=== PATIENT | female | born 1965 | race Caucasian/White ===

== ENCOUNTER → 2017-12-19 08:02 | Outpatient (CLI) | payer BC, SELFPAY ==
--- NOTE | 2017-12-19 08:08 | CT_ITS ---
STUDY: CT RIGHT FOOT REASON FOR EXAM: Female, 52 years old. History of right foot fracture. Prior surgery with cadaver bone grafting. RADIATION DOSAGE (If Supplied By Facility): CTDIvol = ( 15.35 ) mGy, DLP = ( 320.44 ) mGycm TECHNIQUE: Thin section transaxial imaging of the foot was obtained, with sagittal and coronal reconstructed images. 3-D reconstructions were obtained as well. Individualized dose optimization techniques were used for this CT. COMPARISON: None. FINDINGS: There is evidence of a pes planus. Calcaneal spur. There is evidence of arthrodesis at the calcaneal talar joint. Screw fixation is seen along the medial aspect of the talotibial navicular bone. There is evidence of joint space narrowing with sclerosis and joint space narrowing. There is also evidence of screw and plate fixation of the calcaneal cuboid bone utilizing screw and plate fixation device. Findings suggestive of old avulsion type fracture of the distal tibia posteriorly. Normal metatarsi. Hallux valgus deformity with degenerative changes. Normal tibial and fibular sesamoid bones. Normal interphalangeal joint of the great toe. Normal phalanges of the great toe. Normal second through fifth metatarsophalangeal joints. Normal interphalangeal joints and phalanges of the lesser toes. Soft tissue swelling worse along the anterior and the lateral portion of the ankle. CT/Extremity Lower without Contra IMPRESSION: Prior fusion of the calcaneal talar as well as calcaneocuboid and cuneiform arthrodesis with joint space narrowing and degenerative changes. Electronically Signed: Abiel Hebert MD at 15:04 EST Tel [phone], Service support ,
--- NOTE | 2017-12-19 08:37 | CT_ITS ---
STUDY: CT RIGHT FOOT REASON FOR EXAM: Female, 52 years old. History of right foot fracture. Prior surgery with cadaver bone grafting. RADIATION DOSAGE (If Supplied By Facility): CTDIvol = ( 15.35 ) mGy, DLP = ( 320.44 ) mGycm TECHNIQUE: Thin section transaxial imaging of the foot was obtained, with sagittal and coronal reconstructed images. 3-D reconstructions were obtained as well. Individualized dose optimization techniques were used for this CT. COMPARISON: None. FINDINGS: There is evidence of a pes planus. Calcaneal spur. There is evidence of arthrodesis at the calcaneal talar joint. Screw fixation is seen along the medial aspect of the talotibial navicular bone. There is evidence of joint space narrowing with sclerosis and joint space narrowing. There is also evidence of screw and plate fixation of the calcaneal cuboid bone utilizing screw and plate fixation device. Findings suggestive of old avulsion type fracture of the distal tibia posteriorly. Normal metatarsi. Hallux valgus deformity with degenerative changes. Normal tibial and fibular sesamoid bones. Normal interphalangeal joint of the great toe. Normal phalanges of the great toe. Normal second through fifth metatarsophalangeal joints. Normal interphalangeal joints and phalanges of the lesser toes. Soft tissue swelling worse along the anterior and the lateral portion of the ankle. CT/Coronals Sag Multi Obl 3-D Rec IMPRESSION: Prior fusion of the calcaneal talar as well as calcaneocuboid and cuneiform arthrodesis with joint space narrowing and degenerative changes. Electronically Signed: Abiel Hebert MD at 15:04 EST Tel [phone], Service support ,
== END ==
PROVIDERS: Family Provider Family Medicine; PCP Family Medicine
DX: S92.211K Displaced fracture of cuboid bone of right foot, subsequent encounter for fracture with nonunion (principal); X58.XXXD Exposure to other specified factors, subsequent encounter
CPT/HCPCS: 73700; 76377

== ENCOUNTER → 2018-06-29 12:22 | Outpatient (CLI) | payer BC, SELFPAY | PROVIDERS: Family Provider Family Medicine; PCP Family Medicine | DX: Z48.89 Encounter for other specified surgical aftercare (principal); M19.071 Primary osteoarthritis, right ankle and foot | CPT/HCPCS: 73700; 76377 ==

== ENCOUNTER 2025-02-25 10:00 | Inpatient (IN) | payer OTHER, SELFPAY ==
[2025-02-25 10:02] VITALS: BP 136/87; PULSE 93; RESP 16; TEMP 36.6; O2SAT 99; BMI 48.5
--- NOTE | 2025-02-25 10:29 | CT_ITS ---
PROCEDURE: ABDOMEN/PELVIS WITH CONTRAST 02/25/2025 REASON FOR EXAM: PAINLESSS JAUNDICE, back pain for several days, rib pain TECHNIQUE: Abdomen and pelvis CT with intravenous contrast. Coronal and Sagittal reconstruction series were provided. PATIENT PREPARATION: Per protocol ORAL CONTRAST TYPE: None. CONTRAST: 98 cc [id number] One or more dose reduction techniques were used (e.g., Automated exposure control, adjustment of the mA and/or kV according to patient size, use of iterative reconstruction technique. RADIATION DOSE SUMMARY: DLP: 1477.43 mGycm COMPARISON: None FINDINGS: Lung bases: There is a 0.9 cm irregular density in the right lung base, axial image 14/149. Atelectasis or scar is noted at the right lung base. Liver: There is a 3 cm heterogeneous low-density peripherally enhancing lesion in the mid right hepatic lobe, axial image 28/149. There is a 1.2 cm low-density lesion in the inferior right hepatic lobe, image 45. Gallbladder: There are no visible stones. Spleen: Unremarkable Pancreas: There is a heterogeneous mass at the pancreatic head measuring 7.7 by 6.4 cm, image 47, with stranding and nodularity in the adjacent fat. Adrenals: There is a 4.7 by 3.7 cm heterogeneous right adrenal mass, image 44, Hounsfield units = 51 Kidneys: Unremarkable Bladder: Decompressed Reproductive Organs: Absent Bowel: Oral contrast progressed to the cecum. The appendix is unremarkable. Small bowel loops are not distended. Lymph nodes: There is a 1.2 x 1.5 cm enlarged mesenteric node, axial image 59/149. There is a 1.1 by 1.3 cm left periaortic node below the level of the left renal artery, image 60. 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 atherosclerotic calcifications are noted. Peritoneum / Retroperitoneum: There is no free air or free fluid. Bones: No acute bony abnormality is identified CT/Abdomen/Pelvis WITH Contrast IMPRESSION: There is a 0.9 cm irregular density in the right lung base, axial image 14/149. Atelectasis or scar is noted at the right lung base. There is a 3 cm heterogeneous low-density peripherally enhancing lesion in the mid right hepatic lobe, axial image 28/149. There is a 1.2 cm low-density lesion in the inferior right hepatic lobe, image 45. There is a heterogeneous mass at the pancreatic head measuring 7.7 by 6.4 cm, i mage 47, with stranding and nodularity in the adjacent fat. There is a 4.7 by 3.7 cm heterogeneous right adrenal mass, image 44, Hounsfield units = 51 There is a 1.2 x 1.5 cm enlarged mesenteric node, axial image 59/149. There is a 1.1 by 1.3 cm left periaortic node below the level of the left renal artery, image 60. There is an intraluminal filling defect, likely nonocclusive thrombus in the po rtal vein and proximal mesenteric veins, coronal image 53-69, with 75% narrowing of the lumen at the pancreatic head, coronal im age 65-69. Critical results were discussed with Marybeth by Radha at the time of dictat ion. Reading Location: [facility]
--- NOTE | 2025-02-25 10:44 | EDS_ITS ---
HPI History of Present Illness Chief Complaint: General Illness Informant: patient and family Narrative Narrative: 60-year-old female presenting to the emergency room with jaundice. Patient states that for the past 2 to 3 weeks she has had a 50 pound weight loss as well as pain over the bilateral lower anterior rib cage. She notes she has not had much of an appetite and no nausea and states that her stool has become light- colored. She notes her urine has become dark-colored. On Tuesday she made appointment for later this week with primary care. Tuesday night she noticed in the mirror that she was jaundiced and did not wish to pursue any investigation of this until today. She notes history of partial hysterectomy. She denies any significant pain when she eats but does note the associated nausea. No reported fevers. Patient notes that her daughter of metastatic breast cancer. Her aunt is her POA if needed. PFSH [facility] Medical History (Updated 02/25/25 @ 15:00 by Radha Goodman) Depression GERD (gastroesophageal reflux disease) Smoker DVT (deep venous thrombosis) Cervical endometriosis Tonsillectomy planned Ureter injury Home Medications ?Medication ?Instructions ?Recorded ?Last Taken ?Type calcium carbonate (Calcium 500) 500 mg PO DAILY PRN dy spepsia 02/25/25 02/24/25 History omeprazole 20 mg capsule,delayed 20 mg PO DAILY PRN ac id reflux 02/25/25 02/21/25 History release Allergy/AdvReac Type Severity Reaction Status Date / Time bupropion (From Wellbutrin) Allergy hives and Verified 02/25/25 14:54 trouble breathing Family History (Updated 02/25/25 @ 15:[address] Dontae Coello MD) Other Breast cancer Surgical History (Updated 02/25/25 @ 11:14 by Nancy Cardenas) Hx of foot surgery History of partial hysterectomy Social History Smoking Status: Current every day smoker tobacco type: cigarettes ROS ROS ED Constitutional Constitutional ED: Denies chills, fever(s) or weight loss Eyes Eyes: Denies change in vision or diplopia ENT ENT ED: Denies ear pain, rhinorrhea or sore throat Cardiovascular Cardiovascular: Denies chest pain, orthopnea, palpitations or racing heartbeat Respiratory/Chest Respiratory/Chest: Denies cough, dyspnea or orthopnea Gastrointestinal Gastrointestinal: Reports abdominal pain, diarrhea and nausea; Denies vomiting Genitourinary Genitourinary ED: Denies dysuria, hematuria or urinary frequency Musculoskeletal Musculoskeletal: Denies arthralgias or myalgias Integumentary Reports other Details: Jaundice ; Denies abscess or rash Neurologic Neurologic: Denies headache(s) or weakness Psychiatric Psychiatric: Denies anxiety, depression, suicidal ideation or suicidal thoughts Endocrine Endocrinology: Denies polydipsia, polyphagia or polyuria Allergic/Immunologic Allergic/Immunologic ED: Denies mouth swelling, tongue swelling or urticaria EXAM Physical Exam Const Vital Signs: 02/25/25 10:02 02/25/25 11:14 02/25/25 12:15 Temperature 97.9 F Temperature Source Oral Pulse Rate 93 86 Respiratory Rate 16 18 Respiratory Effort Normal Non-Labored Respiratory Pattern Normal Blood Pressure 136/87 H 131/53 H Blood Pressure Mean 103 79 Pulse Ox 99 97 Oxygen Delivery Method Room Air Room Air Positive well nourished, well developed and obese General Appearance ED: well developed Nutritional Appearance: obese HEENT Reports normocephalic, head/scalp atraumatic and moist mucous membranes Eyes PERRL and EOMs intact bilaterally General Eye ED: Yes scleral icterus Neck no lymphadenopathy, supple and no JVD Resp normal respiratory effort and clear to auscultation bilaterally Cardio regular rate, regular rhythm and no murmurs GI GI Narrative: Mild tenderness to the palpation in the epigastrium on the lower anterior right rib cage. Palpation: soft Back/Spine no CVA tenderness and normal ROM Extremity normal to inspection General Extremety ED: Negative for edema General Extremity: Negative for edema Neuro oriented x3 and CN's II-XII intact bilaterally Sensorium / Orientation: alert Motor Exam: strength 5/5 throughout Psych mental status grossly normal Mood & Affect: Negative for depressed or tearful Skin no rashes or lesions noted and no wounds General Skin Exam: jaundice MDM MDM MDM Narrative Medical decision making narrative: Differential diagnosis includes but not limited to malignancy choledocholithiasis biliary colic liver dysfunction anemia Patient's white count 7.7 hemoglobin of 17 platelet count of 268. Normal BMP except for glucose of 133. Total bilirubin is 12.8 direct bilirubin 9.0 AST of 228 ALT of 384 alk phos 841. Urinalysis does not demonstrate any obvious infection. CT of the abdomen pelvis with oral and IV contrast was obtained read by radiology and reviewed by myself. This is very concerning for primary pancreatic cancer with metastasis. Please see radiologist read for full details. I spoke with the patient and I spoke with Dr. Solano and her hospitalist team. Plan of care will be admission to the hospital. Patient has received pain and nausea medication. Patient also received a dose of Protonix as she was feeling GERD-like sensation in her epigastrium lower chest. She had not yet had her omeprazole. History & Record Review Discussion w/independent historian: Patient and Family Additional record(s) reviewed:: No prior records Lab Data Attestation: I reviewed the patient's lab results. Labs: Laboratory Results - last 24 hr 02/25/25 02/25/25 10:42 10:43 WBC 7.7 RBC 5.67 H Hgb 17.0 H Hct 50.0 H MCV 88.2 MCH 30.0 MCHC 34.0 RDW Std Deviation 49.9 H RDW Coeff of Nona 15.7 H Plt Count 268 MPV 10.6 Immature Gran % (Auto) 0.800 Neut % (Auto) 71.0 H Lymph % (Auto) 16.3 L [place] % (Auto) 10.1 H Eos % (Auto) 0.9 Baso % (Auto) 0.9 Absolute Neuts (auto) 5.4 Absolute Lymphs (auto) 1.25 Nucleated RBC % 0 Sodium 138 Potassium 4.2 Chloride 98 Carbon Dioxide 26.1 Anion Gap 13 BUN 12 Creatinine 0.93 Estim Creat Clear Calc 97.02 Est GFR (MDRD) Non-Af 71 BUN/Creatinine Ratio 13.0 Glucose 133 H Calcium 9.8 Total Bilirubin 12.80 H Direct Bilirubin 9.04 H AST 228 H ALT 384 H Alkaline Phosphatase 841 H Total Protein 6.7 Albumin 3.7 Globulin 3.0 Lipase 24 Urine Color Yellow Urine Clarity Sl. Cloudy Urine pH 6.5 Ur Specific [place] 1.010 Urine Protein 15 H Urine Glucose (UA) Normal Urine Ketones Negative Urine Occult Blood 10 H Urine Nitrite Negative Urine Bilirubin 3 H Urine Urobilinogen 4 H Ur Leukocyte Esterase 25 H Urine RBC 0-5 SEEN Urine WBC 0-5 SEEN Ur Squamous Epith Cells 0-5 SEEN Urine Bacteria RARE Urine Mucus 0 SEEN Radiography Diagnostic Testing: Clinical Impression(s) from Imaging Studies Abdomen/Pelvis CT 02/25/25 10:29 IMPRESSION: There is a 0.9 cm irregular density in the right lung base, axial image 14/149. Atelectasis or scar is noted at the right lung base. There is a 3 cm heterogeneous low-density peripherally enhancing lesion in the mid right hepatic lobe, axial image 28/149. There is a 1.2 cm low-density lesion in the inferior right hepatic lobe, image 45. There is a heterogeneous mass at the pancreatic head measuring 7.7 by 6.4 cm, image 47, with stranding and nodularity in the adjacent fat. There is a 4.7 by 3.7 cm heterogeneous right adrenal mass, image 44, Hounsfield units = 51 There is a 1.2 x 1.5 cm enlarged mesenteric node, axial image 59/149. There is a 1.1 by 1.3 cm left periaortic node below the level of the left renal artery, image 60. 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 Critical results were discussed with Marybeth by Radha at the time of dictation. Reading [facility] Management Discussion w/another healthcare provider: Hospitalist (Dr Coello), Automotive Manager (Dr Solano) and Radiologist Discharge Plan Dx/Rx/DC Orders Clinical Impression: Primary pancreatic cancer , Cancer, metastatic to liver, Abnormal weight loss, Painless jaundice Disposition Disposition: Acute Care Hospital [facility]
[2025-02-25 10:53] LABS: Absolute Lymphocyte Count 1.25 X10^3/uL (0.83-4.51); Absolute Neutrophil Count 5.4 X10^3/uL (2.0-7.7); Basophil# 0.07 X10^3/uL; Basophil% 0.9 % (0-1); Eosinophil# 0.07 X10^3/uL; Eosinophils% 0.9 % (0-5); Lymphocyte # 1.25 X10^3/ul (0.83-4.51); Lymphocyte % 16.3 % (19-41); Mean Corpuscular Volume 88.2 fL (81-99); Mean Platelet Vol. 10.6 fl (6.2-12.0); Monocyte# 0.77 X10^3/uL; Monocyte% 10.1 % (0-10); NRBC Flagged by Analyzer 0 % (0-5); Neutrophil # 5.44 X10^3/uL (2.7-7.7); Platelet Count 268 K/mm3 (150-450); RBC Distribution Width CV 15.7 % (11.6-14.6); RBC Distribution Width SD 49.9 fl (35.1-43.9); Red Blood Count 5.67 M/mm3 (4.2-5.4); White Blood Count 7.7 K/mm3 (4.4-11.0)
[2025-02-25] MEDS: 0.9% Normal Saline (1000mL) 1,000 ML 999 ML IV (11:03)
--- NOTE | 2025-02-25 11:17 | ED.RN ---
[place] urine for 3- 3.5 weeks. Heart burn feeling with rib pain.
[2025-02-25 11:21] LABS: AST(SGOT) 228 U/L (<=31); Alanine Aminotransfer ALT/SGPT 384 U/L (<=34); Albumin, Serum 3.7 g/dL (3.5-5.0); Alkaline Phosphatase 841 U/L (35-104); Anion Gap 13 (5-15); BUN 12 mg/dL (4-19); Bilirubin, Direct 9.04 mg/dL (0.00-0.30); Calcium,Total 9.8 mg/dL (7.6-11.0); Carbon Dioxide 26.1 mmol/L (21.0-32.0); Chloride 98 mmol/L (98-108); Creatinine, Serum 0.93 mg/dL (0.70-1.20); EST Glomerular Filtration Rate 71 (>60); Estimated Creatinine Clearance 97.02 ml/min (50-250); Glucose 133 mg/dL (70-99); Lipase 24 U/L (13-75); Potassium 4.2 mmol/L (3.3-5.1); Protein, Total 6.7 g/dL (5.9-8.4); Sodium Level 138 mmol/L (133-145)
[2025-02-25 11:54] LABS: Mucous, Urine 0 SEEN /hpf (<or=2+)
[2025-02-25 11:56] LABS: Color, Urine Yellow (Yellow); Glucose, Dipstick Normal (Normal); Ketone-Dipstick Negative (Negative); Leukocyte Esterase-Dipstick 25 /ul (Negative); Nitrite-Dipstick Negative (Negative); Occult Blood-Urine 10 /ul (Negative); Protein-Dipstick 15 mg/dl (Negative); Urine Clarity Sl. Cloudy (Clear); Urine Urobilinogen 4 mg/dl (Normal); Urine pH 6.5 (5.0 - 8.0)
[2025-02-25 11:59] LABS: Urine Bilirubin Dipstick 3 mg/dL (Negative)
[2025-02-25 12:06] LABS: Bacteria RARE /hpf (None Seen); Red Blood Cells-Urine 0-5 SEEN /hpf (0-5); Squamous Epithelial Cells - UA 0-5 SEEN /hpf (5-10); White Blood Cells 0-5 SEEN /hpf (0-5)
[2025-02-25 12:15] VITALS: BP 131/53; PULSE 86; RESP 18; O2SAT 97
[2025-02-25] MEDS: Ondansetron 4 MG/2 ML Vial IV (14:14)
--- NOTE | 2025-02-25 15:00 | CM.ED ---
Social work Reason for referral: support Referral source: Gita RANKIN This SW was approached by Gita RANKIN with request to meet with patient for support due to patient just discovering patient has pancreatic cancer. SW entered patient's room, introducing self and role at [facility]. Patient accepted SW visit and thanked SW for taking the time to meet with patient. Patient stated not knowing how to feel about the new diagnosis and not knowing if patient's response is right or wrong. SW provided reminder to patient that there is not a right or wrong way to respond to such news and SW provided active listening as patient described recent losses in patient's life (mom, fiance, and daughter). Patient talked about patient's life and having a feeling patient would get a cancer diagnosis at some point, but patient did not think it would be pancreatic nor this early in life. Patient discussed much about patient's daughter's myrick with breast cancer ending 12/31/2022 and the impact this has had on patient. Patient's son-in-law and 3 grandsons moved out of the area after patient's daughter and this has been difficult for patient. Patient discussed difficulty with self-care, especially since patient was patient's daughters' primary caregiver for the last month of life, as well as difficulty with accepting help offered from relatives. Patient's aunt arrived at [facility] ED and patient thanked SW for time spent talking with patient. Active listening and supportive presence provided for patient. Ksenia Ledesma, APPRAISER, CLIENT SERVICES ASSISTANT
--- NOTE | 2025-02-25 15:14 | HP.PCM.HOS_ITS ---
HPI - General General Date of Admission: 02/25/25 HPI Narrative SELENA HURTADO, is a 60 F who presents to the hospital with jaundice as well as some mild pain in her epigastric region. She has noticed a lightening of her stool coloring as well as a darkening of her urine. She also states that she has noticed some weight loss due to decreased tolerance of p.o. intake. In the ER she had a CT scan that demonstrated pancreatic head mass likely compressing her common bile duct. She also had a lesion in her right adrenal mass as well as enlarged mesenteric lymph nodes. She was also found to have a liver lesion all of which is considered at this time to be metastatic. There is also potential nonocclusive thrombus in the portal vein. She is very hesitant to undergo any type of biopsy or treatment as her daughter from an aggressive breast cancer and she states that she watched her daughter disappear while undergoing treatment, she is willing to undergo an ERCP for stent placement and even a possible biopsy but is unlikely to proceed with any type of chemotherapy or radiation therapy. [facility] Medical History (Updated 02/25/25 @ 15:00 by Radha Goodman) Depression GERD (gastroesophageal reflux disease) Smoker DVT (deep venous thrombosis) Cervical endometriosis Tonsillectomy planned Ureter injury Home Medications ?Medication ?Instructions ?Recorded ?Last Taken ?Type calcium carbonate (Calcium 500) 500 mg PO DAILY PRN dy spepsia 02/25/25 02/24/25 History omeprazole 20 mg capsule,delayed 20 mg PO DAILY PRN ac id reflux 02/25/25 02/21/25 History release Allergy/AdvReac Type Severity Reaction Status Date / Time bupropion (From Wellbutrin) Allergy hives and Verified 02/25/25 14:54 trouble breathing Family History (Updated 02/25/25 @ 15:[address] Dontae Coello MD) Other Breast cancer Surgical History (Updated 02/25/25 @ 11:14 by Nancy Cardenas) Hx of foot surgery History of partial hysterectomy Social History Smoking Status: Current every day smoker tobacco type: cigarettes ROS Constitutional Constitutional: Reports anorexia and change in weight; Denies chills, fatigue, fever(s) or malaise Eyes Eyes: Denies blurry vision ENT HEENT: Denies headache(s) or nasal discharge Cardiovascular Cardiovascular: Denies chest pain, dyspnea on exertion or syncope Respiratory/Chest Respiratory/Chest: Denies cough, shortness of breath at rest or shortness of breath with exertion Gastrointestinal Gastrointestinal: Reports abdominal pain; Denies constipation, diarrhea, nausea or vomiting Genitourinary Genitourinary: Denies dysuria Integumentary Integumentary: Reports jaundice Neurologic Neurologic: Denies focal weakness, numbness or tremor(s) Psychiatric Psychiatric: Denies anxiety or depression Vital Signs Vital Signs Vital Signs: 02/25/25 10:02 02/25/25 11:14 02/25/25 12:15 Temperature 97.9 F Temperature Source Oral Pulse Rate 93 86 Respiratory Rate 16 18 Respiratory Effort Normal Non-Labored Respiratory Pattern Normal Blood Pressure 136/87 H 131/53 H Blood Pressure Mean 103 79 Pulse Ox 99 97 Oxygen Delivery Method Room Air Room Air Weight Weight: 310 lb Body Mass Index (BMI) 48.5 Physical Exam Narrative General: Alert, Oriented x3, Cooperative, No apparent distress HEENT: Atraumatic, PERRLA, EOMI, Normocephalic, scleral icterus Oral: Moist Mucosa Neck: Supple, No JVD Lungs: Diminished, Normal air movement, No rhonchi, No wheeze, No rales Cardiovascular: Regular rate, Regular Rhythm, Normal S1, Normal S2, No murmurs Abdomen: Soft, mild epigastric tender, Non-Distended, No Hepato-splenomegaly Extremities: No edema, Capillary Refill Less than 3 Seconds Skin: Jaundice Musculoskeletal: No Tenderness to Palpation of Joints or Extremities Neurological: No focal neurological deficits, Motor Exam 5/5 strength throughout, Sensory exam intact to light touch and pain Psych/Mental Status: Normal Affect, Appropriate Results Lab / Micro Data 02/25/25 10:42 02/25/25 10:42 Labs: Laboratory Results - last 24 hr 02/25/25 10:42: WBC 7.7, RBC 5.67 H, Hgb 17.0 H, Hct 50.0 H, MCV 88.2, MCH 30.0, MCHC 34.0, RDW Std Deviation 49.9 H, RDW Coeff of Nona 15.7 H, Plt Count 268, MPV 10.6, Immature Gran % (Auto) 0.800, Neut % (Auto) 71.0 H, Lymph % (Auto) 16.3 L, [place] % (Auto) 10.1 H, Eos % (Auto) 0.9, Baso % (Auto) 0.9, Absolute Neuts (auto) 5.4, Absolute Lymphs (auto) 1.25, Nucleated RBC % 0, Sodium 138, Potassium 4.2, Chloride 98, Carbon Dioxide 26.1, Anion Gap 13, BUN 12, Creatinine 0.93, Estim Creat Clear Calc 97.02, Est GFR (MDRD) Non-Af 71, BUN/Creatinine Ratio 13.0, G lucose 133 H, Calcium 9.8, Total Bilirubin 12.80 H, Direct Bilirubin 9.04 H, AST 228 H, ALT 384 H, Alkaline Phosphatase 841 H, Total Protein 6.7, Albumin 3.7, Globulin 3.0, Lipase 24 02/25/25 10:43: Urine Color Yellow, Urine Clarity Sl. Cloudy, Urine pH 6.5, Ur Specific [place] 1.010, Urine Protein 15 H, Urine Glucose (UA) Normal, Urine Ketones Negative, Urine Occult Blood 10 H, Urine Nitrite Negative, Urine Bilirubin 3 H, Urine Urobilinogen 4 H, Ur Leukocyte Esterase 25 H, Urine RBC 0-5 SEEN, Urine WBC 0-5 SEEN, Ur Squamous Epith Cells 0-5 SEEN, Urine Bacteria RARE, Urine Mucus 0 SEEN Imaging Radiology Impression Abdomen/Pelvis CT 02/25/25 10:29 IMPRESSION: There is a 0.9 cm irregular density in the right lung base, axial image 14/149. Atelectasis or scar is noted at the right lung base. There is a 3 cm heterogeneous low-density peripherally enhancing lesion in the mid right hepatic lobe, axial image 28/149. There is a 1.2 cm low-density lesion in the inferior right hepatic lobe, image 45. There is a heterogeneous mass at the pancreatic head measuring 7.7 by 6.4 cm, image 47, with stranding and nodularity in the adjacent fat. There is a 4.7 by 3.7 cm heterogeneous right adrenal mass, image 44, Hounsfield units = 51 There is a 1.2 x 1.5 cm enlarged mesenteric node, axial image 59/149. There is a 1.1 by 1.3 cm left periaortic node below the level of the left renal artery, image 60. 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 Critical results were discussed with Marybeth by Radha at the time of dictation. Reading [facility] Assessment & Plan Assessment/Plan (1) Painless jaundice: (2) Cancer, metastatic to liver: (3) Primary pancreatic cancer : PLAN: Plan 1. Pancreatic head mass with jaundice with elevated LFTs and hyperbilirubinemia ? Continue with ERCP, will consult GI ? Continue with a clear liquid diet ? Continue with Protonix as she has been having some reflux-like symptoms ? Will recheck CMP in the morning ? She has a potential nonocclusive portal vein thrombus. Will hold off anticoagulation in the face of possible surgical interventions acutely, may need better characterization with MRI. Will discuss with gastroenterology ? Had a 20-minute discussion on advance care planning including CODE STATUS discussions and the difference between palliative care and hospice care in terms of her possible cancer diagnosis DVT: Lovenox Charges/Coding Multi Select Codes Visit Charges Visit Charges: 49622 Init Hosp L2 Hospitalists' Procedures Procedures: 73703 Advncd Care Plan 30 Min
[2025-02-25 15:44] VITALS: BP 161/82; PULSE 87; RESP 16; O2SAT 94
[2025-02-25] MEDS: Pantoprazole Sodium 40 MG in 0.9% Normal Saline (100mL MB+) 100 ML 330 MG IV (15:57)
[2025-02-25 16:10] VITALS: RESP 18
[2025-02-25 16:14] VITALS: BMI 49.1
[2025-02-25 16:21] VITALS: BP 153/78; PULSE 95; RESP 18; TEMP 36.1; O2SAT 97
--- NOTE | 2025-02-25 18:25 | CON.PCM.GI_ITS ---
HPI Consult Data Date of Consult: 02/25/25 HPI Narrative Reason for Consultation: Jaundice and abdominal pain HPI Narrative: SELENA HURTADO, is a 60-year-old female presenting to the emergency room with jaundice. Patient states that for the past 2 to 3 weeks she has had a 50 pound weight loss as well as pain over the bilateral lower anterior rib cage. She notes she has not had much of an appetite and no nausea and states that her stool has become light-colored. She notes her urine has become dark-colored. On Tuesday she made appointment for later this week with primary care. Tuesday night she noticed in the mirror that she was jaundiced and did not wish to pursue any investigation of this until today. She notes history of partial hysterectomy. She denies any significant pain when she eats but does note the associated nausea. No reported fevers. Patient notes that her daughter of metastatic breast cancer. Her aunt is her POA if needed. 02/25/25 10:42: WBC 7.7, RBC 5.67 H, Hgb 17.0 H, Hct 50.0 H, MCV 88.2, Plt Count 268, Sodium 138, Potassium 4.2, Chloride 98, Carbon Dioxide 26.1, Anion Gap 13, BUN 12, Creatinine 0.93, Glucose 133 H, Calcium 9.8, Total Bilirubin 12.80 H, Direct Bilirubin 9.04 H, AST 228 H, ALT 384 H, Alkaline Phosphatase 841 H, Total Protein 6.7, Albumin 3.7, Globulin 3.0, Lipase 24 Urine Color Yellow, Urine Clarity Sl. Cloudy, Urine pH 6.5, Ur Specific [place] 1.010, Urine Protein 15 H, Urine Glucose (UA) Normal, Urine Ketones Negative, Urine Occult Blood 10 H, Urine Nitrite Negative, Urine Bilirubin 3 H, Urine Urobilinogen 4 H, Ur Leukocyte Esterase 25 H, Urine RBC 0-5 SEEN, Urine WBC 0-5 SEEN, Ur Squamous Epith Cells 0-5 SEEN, Urine Bacteria RARE, Urine Mucus [address]/Abdomen/Pelvis WITH Contrast IMPRESSION: There is a 0.9 cm irregular density in the right lung base, axial image 14/149. Atelectasis or scar is noted at the right lung base. There is a 3 cm heterogeneous low-density peripherally enhancing lesion in the mid right hepatic lobe, axial image 28/149. There is a 1.2 cm low-density lesion in the inferior right hepatic lobe, image 45. There is a heterogeneous mass at the pancreatic head measuring 7.7 by 6.4 cm, image 47, with stranding and nodularity in the adjacent fat. There is a 4.7 by 3.7 cm heterogeneous right adrenal mass, image 44, Hounsfield units = 51 There is a 1.2 x 1.5 cm enlarged mesenteric node, axial image 59/149. There is a 1.1 by 1.3 cm left periaortic node below the level of the left renal artery, image 60. 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 [facility]LY [facility] Medical History Depression GERD (gastroesophageal reflux disease) Smoker DVT (deep venous thrombosis) Cervical endometriosis Tonsillectomy planned Ureter injury Home Medications ?Medication ?Instructions ?Recorded ?Last Taken ?Type calcium carbonate (Calcium 500) 500 mg PO DAILY PRN dy spepsia 02/25/25 02/24/25 History omeprazole 20 mg capsule,delayed 20 mg PO DAILY PRN ac id reflux 02/25/25 02/21/25 History release Allergy/AdvReac Type Severity Reaction Status Date / Time bupropion (From Wellbutrin) Allergy hives and Verified 02/25/25 14:54 trouble breathing Family History Other Breast cancer Surgical History Hx of foot surgery History of partial hysterectomy Social History Smoking Status: Current every day smoker tobacco type: cigarettes ROS Constitutional Constitutional: Denies fatigue, fever(s), poor appetite, weight gain or weight loss Gastrointestinal Gastrointestinal: Denies belching, bloating, change in bowel habits, change in stool character, chewing difficulty, coffee ground emesis, constipation, cramping, diarrhea, dyspepsia, dysphagia, early satiety, excessive flatus, fecal incontinence, heartburn, hematemesis, hematochezia, hemorrhoids, loose stools, melena, nausea, odynophagia, rectal bleeding, tenesmus, vomiting or weight changes Physical Exam Const alert, oriented x3, no apparent distress and healthy appearing General Appearance: cooperative GI normal to inspection, nondistended, normoactive bowel sounds, soft to palpation, non-tender and non-distended Percussion: normal to percussion Rectal Exam: deferred Lab / Micro Data 02/25/25 10:42 02/25/25 10:42 Labs: Laboratory Results - last 24 hr 02/25/25 10:42: WBC 7.7, RBC 5.67 H, Hgb 17.0 H, Hct 50.0 H, MCV 88.2, MCH 30.0, MCHC 34.0, RDW Std Deviation 49.9 H, RDW Coeff of Nona 15.7 H, Plt Count 268, MPV 10.6, Immature Gran % (Auto) 0.800, Neut % (Auto) 71.0 H, Lymph % (Auto) 16.3 L, [place] % (Auto) 10.1 H, Eos % (Auto) 0.9, Baso % (Auto) 0.9, Absolute Neuts (auto) 5.4, Absolute Lymphs (auto) 1.25, Nucleated RBC % 0, Sodium 138, Potassium 4.2, Chloride 98, Carbon Dioxide 26.1, Anion Gap 13, BUN 12, Creatinine 0.93, Estim Creat Clear Calc 97.02, Est GFR (MDRD) Non-Af 71, BUN/Creatinine Ratio 13.0, G lucose 133 H, Calcium 9.8, Total Bilirubin 12.80 H, Direct Bilirubin 9.04 H, AST 228 H, ALT 384 H, Alkaline Phosphatase 841 H, Total Protein 6.7, Albumin 3.7, Globulin 3.0, Lipase 24 02/25/25 10:43: Urine Color Yellow, Urine Clarity Sl. Cloudy, Urine pH 6.5, Ur Specific [place] 1.010, Urine Protein 15 H, Urine Glucose (UA) Normal, Urine Ketones Negative, Urine Occult Blood 10 H, Urine Nitrite Negative, Urine Bilirubin 3 H, Urine Urobilinogen 4 H, Ur Leukocyte Esterase 25 H, Urine RBC 0-5 SEEN, Urine WBC 0-5 SEEN, Ur Squamous Epith Cells 0-5 SEEN, Urine Bacteria RARE, Urine Mucus 0 SEEN Imaging Radiology Impression Abdomen/Pelvis CT 02/25/25 10:29 IMPRESSION: There is a 0.9 cm irregular density in the right lung base, axial image 14/149. Atelectasis or scar is noted at the right lung base. There is a 3 cm heterogeneous low-density peripherally enhancing lesion in the mid right hepatic lobe, axial image 28/149. There is a 1.2 cm low-density lesion in the inferior right hepatic lobe, image 45. There is a heterogeneous mass at the pancreatic head measuring 7.7 by 6.4 cm, image 47, with stranding and nodularity in the adjacent fat. There is a 4.7 by 3.7 cm heterogeneous right adrenal mass, image 44, Hounsfield units = 51 There is a 1.2 x 1.5 cm enlarged mesenteric node, axial image 59/149. There is a 1.1 by 1.3 cm left periaortic node below the level of the left renal artery, image 60. 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 Critical results were discussed with Marybeth by Radha at the time of dictation. Reading Location: [facility] Assessment & Plan Assessment/Plan (1) Painless jaundice: (2) Cancer, metastatic to liver: (3) Primary pancreatic cancer : PLAN: Plan 60-year-old woman with family history of breast cancer but no significant past medical history presents with painless jaundice. She was pancreatic head mass with jaundice with elevated LFTs and hyperbilirubinemia ? Recommendation ERCP with spyglass and stenting, ? Continue with a clear liquid diet ? Continue with Protonix as she has been having some reflux-like symptoms ? Will recheck CMP in the morning ? She has a potential nonocclusive portal vein thrombus. This is likely secondary to hypercoagulable state. She will likely need anticoagulation after she undergoes ERCP. Charges/Coding Visit Charges Inpatient E&M: 76026 Init Hosp L3
[2025-02-25 21:58] VITALS: BP 129/65; PULSE 93; RESP 16; TEMP 36.6; O2SAT 95
[2025-02-26] VITALS (15 sets, daily range): BP systolic 125–175; BP diastolic 57–91; PULSE 76–104; RESP 12–20; TEMP 36.3–36.8; O2SAT 94–98
--- NOTE | 2025-02-26 06:00 | EKG12_ITS ---
Test Reason : PRE-OP Blood Pressure : */* mmHG Vent. Rate : 83 BPM Atrial Rate : 83 BPM P-R Int : 140 ms QRS Dur : 82 ms QT Int : 368 ms P-R-T Axes : 58 25 68 degrees QTcB Int : 432 ms Normal sinus rhythm Nonspecific ST and T wave abnormality Abnormal ECG When compared with ECG of 22-May-2010 10:34, Nonspecific T wave abnormality, worse in Anterolateral leads Confirmed by GONZALES NELSON, KATIE ([id number]), graphic editor JUNE BLACKBURN ([id number]) on 02/27/2025 1:20:14 PM Referred By: Dontae Coello Confirmed By: KATIE ROLON MD
[2025-02-26 07:40] LABS: Absolute Lymphocyte Count 2.02 X10^3/uL (0.83-4.51); Absolute Neutrophil Count 3.7 X10^3/uL (2.0-7.7); Basophil# 0.07 X10^3/uL; Eosinophil# 0.12 X10^3/uL; Eosinophils% 1.8 % (0-5); Hematocrit 45.6 % (37-47); Hemoglobin 15.3 g/dL (12.0-15.0); Lymphocyte # 2.02 X10^3/ul (0.83-4.51); Lymphocyte % 30.2 % (19-41); Mean Corp Hgb Conc 33.6 g/dL (32-36); Mean Corpuscular Hgb 29.9 pg (27.0-32.0); Mean Corpuscular Volume 89.2 fL (81-99); Mean Platelet Vol. 11.1 fl (6.2-12.0); Monocyte# 0.71 X10^3/uL; Monocyte% 10.6 % (0-10); NRBC Flagged by Analyzer 0 % (0-5); Neutrophil # 3.71 X10^3/uL (2.7-7.7); Neutrophil % 55.5 % (47-70); Platelet Count 245 K/mm3 (150-450); RBC Distribution Width CV 15.7 % (11.6-14.6); RBC Distribution Width SD 51.7 fl (35.1-43.9); Red Blood Count 5.11 M/mm3 (4.2-5.4); White Blood Count 6.7 K/mm3 (4.4-11.0)
[2025-02-26 08:21] LABS: ALB/GLOB Ratio 1.3 RATIO (0.9-2.4); AST(SGOT) 180 U/L (<=31); Alanine Aminotransfer ALT/SGPT 323 U/L (<=34); Albumin, Serum 3.4 g/dL (3.5-5.0); Alkaline Phosphatase 707 U/L (35-104); Anion Gap 12 (5-15); BUN 11 mg/dL (4-19); BUN/Creat Ratio 13.8 RATIO (10-20); Carbon Dioxide 25.4 mmol/L (21.0-32.0); Chloride 99 mmol/L (98-108); Creatinine, Serum 0.78 mg/dL (0.70-1.20); EST Glomerular Filtration Rate 88 (>60); Estimated Creatinine Clearance 116.49 ml/min (50-250); Globulin 2.5 g/dL (2.2-4.2); Glucose 121 mg/dL (70-99); Potassium 3.8 mmol/L (3.3-5.1); Protein, Total 5.9 g/dL (5.9-8.4); Sodium Level 136 mmol/L (133-145)
--- NOTE | 2025-02-26 10:21 | PN_ITS ---
Subjective Subjective Patient seen and examined. She had no active complaints, though she admitted to some pruritus likely from the obstructive jaundice. Review of systems is otherwise negative. Objective Data Objective Data Vital Signs: Vital Signs Temp Pulse Resp BP Pulse Ox O2 Del Method 97.3 F L 76 16 125/58 H 94 Room Air 02/26/25 08:24 02/26/25 08:24 02/26/25 08:24 02/26/25 08:24 02/26/25 08:24 02/26/25 08:24 Oxygen Delivery Method Room Air Weight: 313 lb 9.6 oz Body Mass Index (BMI) 49.1 Intake & Output: Intake and Output for Last 24 Hours 02/24/25 02/25/25 02/26/25 23:59 23:59 23:59 Intake Total 1610 / 1810 200 / 200 Balance 1610 / 1810 200 / 200 Lab / Micro Data 02/26/25 07:05 02/26/25 07:05 Labs: Laboratory Results - last 24 hr 02/25/25 10:42: WBC 7.7, RBC 5.67 H, Hgb 17.0 H, Hct 50.0 H, MCV 88.2, MCH 30.0, MCHC 34.0, RDW Std Deviation 49.9 H, RDW Coeff of Nona 15.7 H, Plt Count 268, MPV 10.6, Immature Gran % (Auto) 0.800, Neut % (Auto) 71.0 H, Lymph % (Auto) 16.3 L, [place] % (Auto) 10.1 H, Eos % (Auto) 0.9, Baso % (Auto) 0.9, Absolute Neuts (auto) 5.4, Absolute Lymphs (auto) 1.25, Nucleated RBC % 0, Sodium 138, Potassium 4.2, Chloride 98, Carbon Dioxide 26.1, Anion Gap 13, BUN 12, Creatinine 0.93, Estim Creat Clear Calc 97.02, Est GFR (MDRD) Non-Af 71, BUN/Creatinine Ratio 13.0, G lucose 133 H, Calcium 9.8, Total Bilirubin 12.80 H, Direct Bilirubin 9.04 H, AST 228 H, ALT 384 H, Alkaline Phosphatase 841 H, Total Protein 6.7, Albumin 3.7, Globulin 3.0, Lipase 24 02/25/25 10:43: Urine Color Yellow, Urine Clarity Sl. Cloudy, Urine pH 6.5, Ur Specific [place] 1.010, Urine Protein 15 H, Urine Glucose (UA) Normal, Urine Ketones Negative, Urine Occult Blood 10 H, Urine Nitrite Negative, Urine Bilirubin 3 H, Urine Urobilinogen 4 H, Ur Leukocyte Esterase 25 H, Urine RBC 0-5 SEEN, Urine WBC 0-5 SEEN, Ur Squamous Epith Cells 0-5 SEEN, Urine Bacteria RARE, Urine Mucus 0 SEEN 02/26/25 07:05: WBC 6.7, RBC 5.11, Hgb 15.3 H, Hct 45.6, MCV 89.2, MCH 29.9, MCHC 33.6, RDW Std Deviation 51.7 H, RDW Coeff of Nona 15.7 H, Plt Count 245, MPV 11.1, Immature Gran % (Auto) 0.900, Neut % (Auto) 55.5, Lymph % (Auto) 30.2, M rebecca % (Auto) 10.6 H, Eos % (Auto) 1.8, Baso % (Auto) 1.0, Absolute Neuts (auto) 3.7, Absolute Lymphs (auto) 2.02, Nucleated RBC % 0, Sodium 136, Potassium 3.8, Chloride 99, Carbon Dioxide 25.4, Anion Gap 12, BUN 11, Creatinine 0.78, Estim Creat Clear Calc 116.49, Est GFR (MDRD) Non-Af 88, BUN/Creatinine Ratio 13.8, G lucose 121 H, Calcium 9.0, Total Bilirubin 12.50 H, AST 180 H, ALT 323 H, A lkaline Phosphatase 707 H, Total Protein 5.9, Albumin 3.4 L, Globulin 2.5, Albumin/Globulin Ratio 1.3 Radiography Diagnostic Testing: Radiology Impression Abdomen/Pelvis CT 02/25/25 10:29 IMPRESSION: There is a 0.9 cm irregular density in the right lung base, axial image 14/149. Atelectasis or scar is noted at the right lung base. There is a 3 cm heterogeneous low-density peripherally enhancing lesion in the mid right hepatic lobe, axial image 28/149. There is a 1.2 cm low-density lesion in the inferior right hepatic lobe, image 45. There is a heterogeneous mass at the pancreatic head measuring 7.7 by 6.4 cm, image 47, with stranding and nodularity in the adjacent fat. There is a 4.7 by 3.7 cm heterogeneous right adrenal mass, image 44, Hounsfield units = 51 There is a 1.2 x 1.5 cm enlarged mesenteric node, axial image 59/149. There is a 1.1 by 1.3 cm left periaortic node below the level of the left renal artery, image 60. 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 Critical results were discussed with Marybeth by Radha at the time of dictation. Reading Location: [facility] Physical Exam Const alert, oriented x3 and no apparent distress Constitutional Narrative: class III obesity HEENT normocephalic, head/scalp atraumatic, moist oral mucous membranes and oropharynx normal HEENT Narrative: deeply jaundiced Eyes PERRL and EOMs intact bilaterally Eyes Narrative: jaundiced sclera Neck no lymphadenopathy and supple Lymph Lymphatic: no lymphadenopathy noted and no lymphedema noted Resp normal respiratory effort, normal air movement and clear to auscultation bilaterally Cardio regular rate, regular rhythm, S1 normal heart sound, S2 normal heart sound and no murmurs GI normal to inspection, nondistended, normoactive bowel sounds, soft to palpation, non-tender and non-distended Extremity normal capillary refill, no clubbing, cyanosis or edema and no calf tenderness General Extremity: no tenderness to palpation of joints or extremities Skin Skin Narrative: deeply jaundiced Neuro CN's II-XII intact bilaterally, no focal motor deficits and no sensory deficits noted Motor Exam: strength 5/5 throughout Psych thought process normal, cooperative and affect normal Appearance: appropriate Assessment & Plan Assessment/Plan (1) Cancer, metastatic to liver: (2) Primary pancreatic cancer : (3) Abnormal weight loss: (4) Painless jaundice: PLAN: Plan #Obstructive jaundice, likely due to pancreatic cancer with mets to liver and adrenal gland * admitted with a complaint of painless jaundice and pale stools as well as abdominal pain and weight loss. * abdominal CT showed a mass in the head of the pancreas as well as lesion in the liver and on the adrenal gland and an intra-luminary filling defect, likely nonocclusive thrombus in the portal vein and proximal mesenteric veins * GI consulted. for biliary stent insertion today * I counseled patient extensively today about the workup for pancreatic cancer. Patient did admit that her 30 year old daughter from a very aggressive breast cancer, and she therefore does not want to suffer like she did. She is however, willing to explore treatment modalities for the cancer. * will consult oncology * #DVT prophylaxis: lovenox. Will need anticoagulation eventually Charges/Coding Visit Charges Inpatient E&M: 89303 Subs Hosp L2
[2025-02-26] MEDS: Pantoprazole Sodium 40 MG in 0.9% Normal Saline (100mL MB+) 100 ML 330 MG IV ×2 (13:01→21:18)
--- NOTE | 2025-02-26 13:45 | RAD_ITS ---
EXAM: ERCP biliary/pancreas CLINICAL HISTORY: ERCP, painless jaundice, pancreatic mass TECHNIQUE: Fluoroscopy during ERCP with 5 spot images FINDINGS: Fluoroscopy time 471.0 seconds Cumulative dose 380.24 mGy 5 spot images with apparent cannulation and stenting of the pancreatic duct. Please refer to procedural report for further detail. RAD/ERCP Biliary/Pancreas IMPRESSION: Fluoroscopy during ERCP as above. Reading Location: [id number]
--- NOTE | 2025-02-26 14:20 | PCM.PN.BLA ---
Progress Note Patient is for ERCP with permanent stent placement and possible biopsies. Physical Exam Const alert, oriented x3 and no apparent distress Constitutional Narrative: class III obesity HEENT normocephalic, head/scalp atraumatic, moist oral mucous membranes and oropharynx normal HEENT Narrative: deeply jaundiced Eyes PERRL and EOMs intact bilaterally Eyes Narrative: jaundiced sclera Neck no lymphadenopathy and supple Lymph Lymphatic: no lymphadenopathy noted and no lymphedema noted Resp normal respiratory effort, normal air movement and clear to auscultation bilaterally Cardio regular rate, regular rhythm, S1 normal heart sound, S2 normal heart sound and no murmurs GI normal to inspection, nondistended, normoactive bowel sounds, soft to palpation, non-tender and non-distended Extremity normal capillary refill, no clubbing, cyanosis or edema and no calf tenderness General Extremity: no tenderness to palpation of joints or extremities Skin Skin Narrative: deeply jaundiced Neuro CN's II-XII intact bilaterally, no focal motor deficits and no sensory deficits noted Motor Exam: strength 5/5 throughout Psych thought process normal, cooperative and affect normal Appearance: appropriate Assessment & Plan Assessment/Plan (1) Painless jaundice: (2) Cancer, metastatic to liver: (3) Primary pancreatic cancer : PLAN: Plan 60-year-old woman with family history of breast cancer but no significant past medical history presents with painless jaundice. She was pancreatic head mass with jaundice with elevated LFTs and hyperbilirubinemia ? Recommendation ERCP with spyglass and stenting, ? Continue with a clear liquid diet ? Continue with Protonix as she has been having some reflux-like symptoms ? Will recheck CMP in the morning ? She has a potential nonocclusive portal vein thrombus. This is likely secondary to hypercoagulable state. She will likely need anticoagulation after she undergoes ERCP. Visit Charges Inpatient E&M: 45622 Subs Hosp L3
--- NOTE | 2025-02-26 14:24 | CASEMGMT ---
MASSIEL ZHENG NOTE: RN CM to room to complete assessment. Pt is out of room at this time. Assessment to be completed at a later time. Liat BSN MASSIEL CM
[2025-02-26] MEDS: Lactated Ringers 1,000 ML 15 ML IV (14:32)
--- NOTE | 2025-02-26 14:45 | FLU_PTH ---
PATIENT: SELENA HURTADO LOC: MS3 U#:[id number] AGE/SX: 60/F ROOM: MS309 RE02/25/[address]: Dr. Justa Pastrana MD : 1965 BED: 1 DIS: 02/27/2025 SPEC #: [id number] RECD: 02/26/25 17:49 STATUS: NELSON REQ #: [id number] DEANNE: 02/26/25 14:[address]: Andre Solano DEPT: CYTOLOGY RECD BY: Servando Chaney ENTERED: 02/27/25 06:49 SP TYPE: Fluid OTHR DR: MD Dr. Mir Peace MD Dr. Joseph Prah, MD Dr. Joel Simmons, MD Dr. Mansour Isckarus, MD Dr. Nana Yaa Koram, MD Dr. Nicholas F Kotsonis, MD Dr. Robert Field, MD Dr. Ryan Jin, MD Dr. Roger Macklis, MD Dr. Steve Walston, DO Nidhi Najera NP-C Tissues: A - Pancreatic duct, NOS Procedures: Special Stain Group II Surgery Specimen Level IV Surgery Specimen Level V Cytospin Fluid HEADER OPERATION: ERCP with brushings, pancreatic stent placement PRE-OP DIAGNOSIS: Painless jaundice, cancer, metastatic to liver, primary pancreatic cancer TISSUE SUBMITTED: A- Pancreatic duct brush tip and brushings for cytology DIAGNOSIS CYTOLOGY A. Pancreatic duct brushing: * Atypical cells present (See note) Note: The smears contain atypical clusters, however, there is significant air-drying artifact which makes the smears suboptimal for evaluation and the possibility of malignancy cannot be excluded. The cell block has minimal cells for evaluation. Clinical and radiologic correlation is recommended. The slides are reviewed with Dr. Fernandez in consultation. CYTOLOGY STUDY Slides are reviewed. CYTOLOGY GROSS A. Received is 0.5 ml of light-yellow fluid with 4 slides labeled with the patient's name and and designated per the requisition as Pancreatic duct brushings and brush tip. Submitted for cytology and cell block preparation. 02/27/2025 CPT: 70980
--- NOTE | 2025-02-26 15:02 | PCM.PRE.AN2 ---
ASA Classification* ASA Classification ASA Classification: 3 Assessment & Plan Anesthesia* Anesthesia Assessment Anesthesia Assessment: Discussed sedation and/or anesthesia options, risks, benefits, and alternatives with patient/parents/legal guardian/POA. Questions invited. The patient/parents/legal guardian/POA seems to understand and agrees to proceed with anesthesia plan. Reviewed the physical assessment, medical history, allergy history and patient home medications list prior to surgery/procedure/anesthetic and documented any changes. Performed airway and anesthesia risk assessments. Anesthesia Type Anesthesia Type: General History Source History Obtained from:: Patient and Chart Anesthesia Focused Assessment* Temperature: 97.3 F Pulse Rate: 76 Blood Pressure: 125/58 Respiratory Rate: 18 Pulse Ox: 94 Oxygen Delivery Method: Room Air Airway Assessment Mouth opens: >3 cm Mallampati Score: I Teeth Condition: Caps/Crowns (Patient has a couple of teeth with caps. They are tight.) and Chipped/Broken (Patient has several chipped teeth.) Neck Range of motion (ROM): Full ROM Focused Labs Anesthesia Preop lab: CBC WBC 6.7 K/mm3 (4.4-11.0) 02/26/25 07:05 02/26/25 RBC 5.11 M/mm3 (4.2-5.4) 02/26/25 07:05 02/26/25 Hgb 15.3 g/dL (12.0-15.0) H 02/26/25 07:05 02/26/25 Hct 45.6 % (37-47) 02/26/25 07:05 02/26/25 Plt Count 245 K/mm3 (150-450) 02/26/25 07:05 02/26/25 CHEMISTRY Potassium 3.8 mmol/L (3.3-5.1) 02/26/25 07:05 02/26/25 Sodium 136 mmol/L (133-145) 02/26/25 07:05 02/26/25 BUN 11 mg/dL (4-19) 02/26/25 07:05 02/26/25 Creatinine 0.78 mg/dL (0.70-1.20) 02/26/25 07:05 02/26/25 Glucose 121 mg/dL (70-99) H 02/26/25 07:05 02/26/25 COAG Pre-Assessment Diagnosis/Proposed Procedure Planned Operative Procedure(s): Endoscopic retrograde cholangiopancreatography with possible biopsy and possible sphincterotomy. 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 When Was Last Pacemaker Check QUESTION #4 FULL TEXT: You/Your Family Experience fever (hyperthermia) with Anesthesia Last Oral Intake Last Oral intake: Last Oral Intake NPO since Meds taken in AM with sips of water? Meds patient instructed to take am of surgery Any additional information?: Yes NPO since: 00:00 PONV PONV - stretcher leveler operator helper: PONV - stretcher leveler operator helper Female HX of Motion Sickness HX of N/V After Surgery Non-Smoker Duration of Surgery greater than 60 minutes Number of Risk Factors PONV Score Height & Weight Height & Weight: Anesthesia: Height & Weight Height 5 ft 7 in 02/25/25 16:14 Weight: 142.247 kg 02/25/25 16:14 Body Mass Index (BMI) 49.1 02/25/25 16:14 Respiratory Assessment Respiratory Assessment - stretcher leveler operator helper: Respiratory Tract Infection Hx - stretcher leveler operator helper Hx Respiratory Tract Infection No 02/25/25 20:28 STOP Sleep Apnea STOP Sleep Apnea - stretcher leveler operator helper: STOP Sleep Apnea - stretcher leveler operator helper Hx Hypertension No 02/25/25 16:14 Hx Sleep Apnea No 02/25/25 16:14 CPAP BIPAP Do you snore loudly (louder No 02/25/25 16:14 than talking or can be heard Do you often feel tired/ Yes 02/25/25 16:14 fatigued/ sleepy during daytime? Has anyone observed you stop No 02/25/25 16:14 breathing during sleep? STOP Results Negative 02/25/25 16:14 QUESTION #5 FULL TEXT : Do you snore loudly (louder than talking or can be heard through closed doors)? Tobacco Use History Tobacco Use History - stretcher leveler operator helper: Tobacco Use History - stretcher leveler operator helper Tobacco Use Smoking Status Current every day smoker 02/25/25 16:14 Hx Tobacco Use No 02/25/25 16:14 Years Smoking Packs Smoked per Day Smoking Cessation Date was within the last 15 years Hx Smoking Cessation Date Hx Smoking Cessation Counseling Hematologic Medial History Hematologic Hx - stretcher leveler operator helper: Hematologic Medical Hx - contracts attorney Hx of Blood Transfusion No 02/25/25 16:14 Hx of Transfusion in last 3 No 02/25/25 16:14 Months Date of Last Transfusion (if within last 3 months) Ever experience any problems No 02/25/25 16:14 with transfusion(s)? Specify any problems Hx of Preganancy in last 3 No 02/25/25 16:14 Months Nurse Filling Out Transfusion FSTEINER 02/25/25 16:14 & Questions: Date: 02/25/25 02/25/25 16:14 Time: 16:17 02/25/25 16:14 Patient unable to answer at this time (ie. confused, unrespo /Reproduction History /Reproductive History - stretcher leveler operator helper: /Reproductive Hx- stretcher leveler operator helper Hx Now No 02/25/25 20:28 Gestational Age (in weeks): EDC: Hx Hx Para Hx Section SAB No 02/25/25 20:28 Active Medications Active Medications: Current Medications Generic Name Dose Route Start Last Admin Trade Name Freq PRN Reason Stop Dose Admin Calcium Carbonate 500 mg 02/25/25 16:12 Calcium Carbonate 500 Mg Tablet PO DAILY PRN dyspepsia Enoxaparin Sodium 40 mg 02/26/25 10:00 Enoxaparin 40 Mg/0.4 Ml Syringe SC DAILY DIANA Pantoprazole Sodium 40 mg/ 110 mls @ 330 mls/hr 02/25/25 22:00 02/26/25 13:25 Sodium Chloride IV Infused Q12 DIANA Infusion Sodium Chloride 100 mls @ 15 mls/hr 02/25/25 16:14 IV .Q6H40M PRN Saline Flush Sodium Chloride 100 mls @ 15 mls/hr 02/25/25 16:14 IV .Q6H40M PRN Additional IVPB Infusion Lactated Ringer's 1,000 mls @ 15 mls/hr 02/26/25 14:30 02/26/25 14:32 IV 15 mls/hr .Q48H DIANA Administration Morphine Sulfate 2 - 4 mg 02/25/25 16:11 Morphine 2 Mg/Ml Syringe IV Q3H PRN PRN Pain Score 6-10 Morphine Sulfate 2 - 4 mg 02/25/25 16:13 Morphine 4 Mg/Ml Syringe IV Q3H PRN PRN Pain Score 6-10 Ondansetron HCl 4 mg 02/25/25 16:11 Ondansetron 4 Mg/2 Ml Vial IV Q8H PRN PRN NAUSEA/VOMITING Sodium Chloride 10 - 40 ml 02/25/25 16:14 0.9% Saline Lock 10 Ml Syringe IV UD PRN SALINE FLUSH PFSH Medical History Depression GERD (gastroesophageal reflux disease) Smoker DVT (deep venous thrombosis) Cervical endometriosis Tonsillectomy planned Ureter injury Home Medications ?Medication ?Instructions ?Recorded ?Last Taken ?Type calcium carbonate (Calcium 500) 500 mg PO DAILY PRN dyspepsia 02/25/25 02/24/25 History omeprazole 20 mg capsule,delayed 20 mg PO DAILY PRN acid reflux 02/25/25 02/21/25 History release Allergy/AdvReac Type Severity Reaction Status Date / Time bupropion (From Wellbutrin) Allergy hives and Verified 02/25/25 14:54 trouble breathing Family History Other Breast cancer Surgical History Hx of foot surgery History of partial hysterectomy Social History Smoking Status: Current every day smoker tobacco type: cigarettes Review of Systems (Anesthesia) ROS Narrative System reviewed and no additional complaints, except as documented.
--- NOTE | 2025-02-26 16:05 | CHAPLAIN ---
Type of Pastoral Visit _x__ Initial Visit ___ Follow-up Visit ___ On-call Visit ___ General Patient Visit ___ Spiritual Assessment ___ Family Conference ___ Bereavement ___ Rapid Response ___ Code Blue ___ Other (describe below) Pastoral Care Referral From _x__ Patient ___ Family ___ Nurse ___ Physician ___ Production Reproduction Manager ___ Nutrition Representative ___ Other (describe below) Sacrament/Intervention _x__ Active listening ___ Anointing ___ Orthodoxy ___ Bereavement ___ Communion _x__ Anisha exploration ___ _x__ Life review _x__ Prayer ___ Reconciliation ___ Sacrament of Sick _x__ Supportive presence ___ Wedding ___ Other (describe below) Pastoral Comments patient has a new diagnosis of cancer although has not yet seen an oncologist; pt is about to have a procedure done but is willing to talk about her thoughts, feelings, spiritual needs at this time; pt is processing all of this news and the possibilities; pt has had experience with cancer in her only daughter who two years ago of cancer; pt has no siblings and has also lost her mother in addition to the daughter; her only grandsons were moved out of state with their father; pt therefore is experiencing much grief and loss in her life; pt has very limited family and social support; pt has not been a part of a moravian community in years although at times has tried out several churches; pt was involved in churches as a child with her grandmother and has some foundation of spiritual knowledge and understanding; pt may try to be more open to spiritual help in these days; pt states that it is early to tell what she really needs but is welcoming today of prayer and the support offered to listen
--- NOTE | 2025-02-26 17:38 | OP.ERCP_ITS ---
Patient Name: Namita Ang Procedure Date: 02/26/2025 2:23 PM Date of : 1965 Age: 60 Procedure: ERCP Indications: Malignant tumor of the head of pancreas Providers: Andre Solano DO Medicines: Monitored Anesthesia Care Patient Profile: This is a 60 year old female. Refer to note in patient chart for documentation of history and physical. Patient has symptoms of acute jaundice. This patient has no history of previous ERCP. This patient has no history of surgical alteration of the upper digestive tract anatomy. Complications: No immediate complications. Procedure: Pre-Anesthesia Assessment: - Prior to the procedure, a History and Physical was performed, and patient medications and allergies were reviewed. The patient is competent. The risks and benefits of the procedure and the sedation options and risks were discussed with the patient. All questions were answered and informed consent was obtained. Patient identification and proposed procedure were verified by the physician in the pre-procedure area. Mental Status Examination: alert and oriented. Airway Examination: normal oropharyngeal airway and neck mobility. Respiratory Examination: clear to auscultation. CV Examination: normal. Prophylactic Antibiotics: The patient does not require prophylactic antibiotics. Prior Anticoagulants: The patient has taken no anticoagulant or antiplatelet agents except for NSAID medication. ASA Grade Assessment: II - A patient with mild systemic disease. After reviewing the risks and benefits, the patient was deemed in satisfactory condition to undergo the procedure. The anesthesia plan was to use general anesthesia. Immediately prior to administration of medications, the patient was re-assessed for adequacy to receive sedatives. The heart rate, respiratory rate, oxygen saturations, blood pressure, adequacy of pulmonary ventilation, and response to care were monitored throughout the procedure. The physical status of the patient was re-assessed after the procedure. After obtaining informed consent, the scope was passed under direct vision. Throughout the procedure, the patient's blood pressure, pulse, and oxygen saturations were monitored continuously. The Duodenoscope was introduced through the mouth, and advanced to the duodenum and used to inject contrast into the ventral pancreatic duct. The ERCP was accomplished without difficulty. The patient tolerated the procedure well. The ERCP was technically difficult and complex due to a partially obstructing mass. The patient tolerated the procedure well. The procedure was determined to be ASGE Complexity Level 4. Scope In: 3:40:18 PM Scope Out: 5:24:17 PM Total Procedure Duration Time 1 hour 43 minutes 59 seconds Findings: The ap processor film was normal. The esophagus was successfully intubated under direct vision. The scope was advanced to a normal major papilla in the descending duodenum without detailed examination of the pharynx, larynx and associated structures, and upper GI tract. The upper GI tract was grossly normal. The ventral pancreatic duct was deeply cannulated with the short-nosed traction sphincterotome. Contrast was injected. I personally interpreted the pancreatic duct images. Ductal flow of contrast was adequate. Image quality was suboptimal. Contrast extended to the pancreatic duct. Opacification of the entire pancreatic ductal system except for the ventral duct in the head ([place] duct) was successful. The maximum diameter of the ducts was 3 mm. Localized irregularity of the pancreatic duct was seen in the ventral pancreatic duct in the head of the pancreas. A 0.035 inch x 260 cm angled Dreamwire was passed into the ventral pancreatic duct. A 5 mm ventral pancreatic sphincterotomy was made with a traction (standard) sphincterotome using ERBE electrocautery. There was self limited oozing from the sphincterotomy which did not require treatment. Cells for cytology were obtained by brushing in the ventral pancreatic duct in the head of the pancreas. One 5 Fr by 7 cm temporary stent with two external flaps and a single internal flap was placed 5 cm into the ventral pancreatic duct. Clear fluid flowed through the stent. The stent was in good position. A 5 mm biliary sphincterotomy was made with a needle knife over a pancreatic stent using ERBE electrocautery. There was self limited oozing from the sphincterotomy which did not require treatment. The bile duct could not be cannulated with the short-nosed traction sphincterotome. Impression: - An irregularity was found in the ventral pancreatic duct in the head of the pancreas. - A pancreatic sphincterotomy was performed. - Cells for cytology obtained in the ventral pancreatic duct in the head of the pancreas. - One temporary stent was placed into the ventral pancreatic duct. - A biliary sphincterotomy was performed. - Patient needs percutaneous transhepatic drainage due to a totally obstructed common bile duct from a large pancreatic tumor Recommendation: Liver biopsy of liver lesion, CA 19-9, percutaneous transhepatic drainage via interventional radiology Procedure Code(s): --- Professional --- 27789, Endoscopic retrograde cholangiopancreatography (ERCP); with placement of endoscopic stent into biliary or pancreatic duct, including pre- and post-dilation and guide wire passage, when performed, including sphincterotomy, when performed, each stent 78316, 59,51, Endoscopic retrograde cholangiopancreatography (ERCP); with sphincterotomy/papillotomy 66886, 26, Endoscopic catheterization of the pancreatic ductal system, radiological supervision and interpretation CPT copyright 2021 [employer]. All rights reserved. The codes documented in this report are preliminary and upon lawnmower repair mechanic review may be revised to meet current compliance requirements. Andre Solano DO 02/26/2025 5:38:09 PM This report has been signed electronically. Number of Addenda: 0 Note Initiated On: 02/26/2025 2:23 PM
--- NOTE | 2025-02-26 17:51 | PCM.POST.ANE ---
Anesthesia: Postop Eval I Current Vital Signs Temperature: 98.2 F Pulse Rate: 104 Blood Pressure: 162/91 Respiratory Rate: 16 Pulse Ox: 98 Oxygen Delivery Method: Room Air Assessment Airway patent: Yes Spontaneous unlabored respirations: Yes Mental status: Awake and Calm nausea: Yes Vomiting: No Anesthesia Complication: No Fluid Hydration Crystalloid volume administer (ml): 1,000 Total IV fluid infused: 1,000 Progress Note Post-operative progress note: Benadryl/Reglan given for nausea. Anesthesia document: Postop Eval 1 completed: Yes
[2025-02-26] MEDS: Lactated Ringers 1,000 ML 250 ML IV ×2 (19:00→23:29)
--- NOTE | 2025-02-26 19:36 | PCM.POSTANE2 ---
Anesthesia Postop Eval I Sum Postop Eval Completion status Anesthesia document: Postop Eval 1 completed: Yes Anesthesia Postop Eval I Summary Anesthesia Postop Eval I Summary: Anesthesia Postop Eval I: Assessment Summary Airway patent Yes 02/26/25 17:53 Spontaneous unlabored Yes 02/26/25 17:53 respirations Mental status Awake,Calm 02/26/25 17:53 nausea Yes 02/26/25 17:53 Vomiting No 02/26/25 17:53 Anesthesia Postop Eval I: Fluid Summary Crystalloid volume administer 1,000 02/26/25 17:53 (ml) Colloids volume administered ( ml) Blood Product volume administered (ml) Total IV fluid infused 1,000 02/26/25 17:53 Anesthesia Postop Eval I: Summary Notes Anesthesia Complication No 02/26/25 17:53 Anesthesia Complication Comment: Post-operative progress note Benadryl/Reglan 02/26/25 17:53 given for nausea. Anesthesia: Postop Eval II Evaluation Mental status: Awake and Calm Pain Level: 0 nausea: No Vomiting: No Complications Anesthesia Complication: No
[2025-02-27 03:04] VITALS: BP 155/65; PULSE 91; RESP 16; TEMP 37.1; O2SAT 95
[2025-02-27] MEDS: Lactated Ringers 1,000 ML 250 ML IV ×3 (03:28→12:54)
[2025-02-27 06:53] VITALS: BP 104/47; PULSE 83; RESP 16; TEMP 36.8; O2SAT 92
[2025-02-27 07:50] LABS: Absolute Lymphocyte Count 2.36 X10^3/uL (0.83-4.51); Absolute Neutrophil Count 6.7 X10^3/uL (2.0-7.7); Basophil# 0.04 X10^3/uL; Basophil% 0.4 % (0-1); Eosinophil# 0.03 X10^3/uL; Eosinophils% 0.3 % (0-5); Hematocrit 42.6 % (37-47); Hemoglobin 14.2 g/dL (12.0-15.0); Lymphocyte # 2.36 X10^3/ul (0.83-4.51); Lymphocyte % 23.2 % (19-41); Mean Corp Hgb Conc 33.3 g/dL (32-36); Mean Corpuscular Hgb 29.6 pg (27.0-32.0); Mean Corpuscular Volume 88.9 fL (81-99); Mean Platelet Vol. 11.1 fl (6.2-12.0); Monocyte# 1.03 X10^3/uL; Monocyte% 10.1 % (0-10); NRBC Flagged by Analyzer 0 % (0-5); Neutrophil # 6.65 X10^3/uL (2.7-7.7); Neutrophil % 65.3 % (47-70); Platelet Count 238 K/mm3 (150-450); RBC Distribution Width CV 16.1 % (11.6-14.6); RBC Distribution Width SD 52.4 fl (35.1-43.9); Red Blood Count 4.79 M/mm3 (4.2-5.4); White Blood Count 10.2 K/mm3 (4.4-11.0)
[2025-02-27 08:09] LABS: Carbohydrate AG 19-9 1241 U/mL (0-35)
[2025-02-27 08:20] LABS: ALB/GLOB Ratio 1.3 RATIO (0.9-2.4); AST(SGOT) 149 U/L (<=31); Alanine Aminotransfer ALT/SGPT 279 U/L (<=34); Albumin, Serum 3.1 g/dL (3.5-5.0); Alkaline Phosphatase 624 U/L (35-104); Anion Gap 10 (5-15); BUN 14 mg/dL (4-19); BUN/Creat Ratio 16.4 RATIO (10-20); Calcium,Total 8.6 mg/dL (7.6-11.0); Carbon Dioxide 26.9 mmol/L (21.0-32.0); Chloride 101 mmol/L (98-108); Creatinine, Serum 0.87 mg/dL (0.70-1.20); EST Glomerular Filtration Rate 77 (>60); Estimated Creatinine Clearance 104.42 ml/min (50-250); Globulin 2.4 g/dL (2.2-4.2); Glucose 112 mg/dL (70-99); Protein, Total 5.5 g/dL (5.9-8.4); Sodium Level 138 mmol/L (133-145)
[2025-02-27] MEDS: HYDROmorphone 1 MG/ML Syringe IV (08:53)
[2025-02-27] MEDS: 0.9% Saline Lock 10 ML Syringe IV ×2 (08:55→12:53)
[2025-02-27] MEDS: Pantoprazole Sodium 40 MG in 0.9% Normal Saline (100mL MB+) 100 ML 330 MG IV (09:02)
--- NOTE | 2025-02-27 11:30 | CASEMGMT ---
RN?CM?DOUGH CUTTER?CM?to room to meet with patient for initial transition planning/care coordination?assessment.?RN?CM?introduced self and role at [facility].? Pt voices understanding and consents to?assessment?at this time.? Pt resting in bed in no distress at this time.? Pt is A/O at this time and answers all questions appropriately.?? Care providers, pharmacy, and demographics verified/updated at this time. Strata: 3 PCP: Dr Hernandez Specialists: none Preferred Pharmacy: [facility] Retail Insurance: MMO Prescription Benefit:?yes Living Will/HPOA:?Pt has completed both LW and HCPOA, who is her aunt, Kandis. Dorene Gillette, friend, is listed as 1st alternative. Paper copies are on pt's chart. LNOK: Aunt/HCPOA, Kandis Living Arrangements: Lives alone in one-story home w/basement w/3-4 steps to enter. Independent w/ADL's and IADL's. Orders groceries and does curb-side pick-up. Transportation:?Pt states drives self and states no transportation concerns at this time.? Aunt Kandis will take her home @ dc. DME: Pt has a knee scooter @ home from, but does not use. No other DME @ home. She has been using a walker in her room today d/t generalized weakness and also has hx of knee issues. She does not want a walker @ dc. Made aware to notify CM if she changes her mind before discharge. Pt states no need for further DME at this time.? HHC/SNF: No hx of either. Pt is interested in OP therapy, stating she was looking into doing OP therapy d/t her knee issues, but is now also feeling weak all over. Melany, MS3 RN CM, made aware. Pt wishes to return home and states has no further concerns with going home at time of discharge.? ?CM?to follow for any further discharge planning/needs.? Pt voices no further concerns/needs at this time.? Advised pt to ask for?CM?if any further questions/concerns/needs arise.? Voices understanding. PLAN:??Home w/script for OP therapy. Liat CEVALLOSN?RN?CM
--- NOTE | 2025-02-27 11:47 | CON.PCM.ON_ITS ---
Assessment & Plan Assessment/Plan (1) Pancreatic mass: Status: Acute Code(s): K86.89 - Other specified diseases of pancreas (2) Painless jaundice: Status: Acute Code(s): R17 - Unspecified jaundice Plan: 70 year old woman presenting with painless jaundiced, weight loss. Pancreatic mass identified s/p ERCP 02/26/25. 1. Pancreatic mass- Ca19-9 elevated, >1200 with 2 liver lesions, right adrenal mass, and abdominal adenopathy present on imaging, all very suggestive of pancreatic malignancy with metastatic deposits within the aforementioned organs. We discussed the need for tissue biopsy. A CT guided liver biopsy is requested and may be performed in the outpatient setting given unavailability of interventional radiology. In the interim, request CT chest with contrast to complete staging. 2. Nonocclusive regis vein thrombus- begin anticoagulation, anticipating liver biopsy will not be completed during this admission. Follow up with [facility] upon discharge. HPI Consult Data Date of Service:: 02/27/25 PCP / Referring Provider: Dr. Mir Hernandez MD Attending: Dr. Justa Pastrana MD Chief Complaint Chief Complaint: Pancreatic mass History of Present Illness History of Present Illness: Ms. Ang is a 60 year old women who presented to [facility] ED on 02/25/25 with c/o jaundice. Further reported 50 lb weight loss in 4 week period, nausea, and bilat upper quad pain. Labs were significant for Hgb 17 g/dL, total fran 12.[address] of the A/P with oral and IV contrast demonstrated a 7.7 cm mass at the pancreatic head, sub centimeter density within the R lung base, 3 cm lesion in the mid right hepatic lobe, 1.2 cm lesion inferior right hepatic lobe, a right adrenal mass, and lymphadenopathy within the abdomen, as well as non-occlusive thrombus in the portal vein. She was subsequently admitted for management of pain. Underwent ERCP 02/26/25, irreglarity visualized in the head of the pancreas, temporary stent placed, cells for cytology were obtained (pathology pending). ? Interval History Interval History: Upon entering the room, the patient is sitting upright in bed finishing breakfast meal. Shares she experienced hunger this morning, which has not occurred for several weeks. Rates bilat rib pain 4/10 at this time, tolerable. DVT history unclear. Approx 20 pk yr history of inhaled tobacco use (1/2- 3/4 ppd x 30 years) Family history positive for daughter with breast cancer (diagnosed in her 30s) and uterine malignancies of paternal great-grandmother, paternal grandmother, paternal aunt. Advanced Directives Do you have a Healthcare Power of Bellows Filler?: Yes [facility] Medical History (Updated 02/27/25 @ 11:42 by Nidhi Najera SILVERER, SILVERER-C) Pancreatic mass Depression GERD (gastroesophageal reflux disease) Smoker DVT (deep venous thrombosis) Cervical endometriosis Tonsillectomy planned Ureter injury Home Medications ?Medication ?Instructions ?Recorded ?Last Taken ?Type calcium carbonate (Calcium 500) 500 mg PO DAILY PRN dy spepsia 02/25/25 02/24/25 History omeprazole 20 mg capsule,delayed 20 mg PO DAILY PRN ac id reflux 02/25/25 02/21/25 History release Allergy/AdvReac Type Severity Reaction Status Date / Time bupropion (From Wellbutrin) Allergy hives and Verified 02/25/25 14:54 trouble breathing Family History Other Breast cancer Surgical History Hx of foot surgery History of partial hysterectomy Social History Smoking Status: Current every day smoker tobacco type: cigarettes ROS ROS Narrative Negative except as documented in the interval HPI Physical Exam Const alert, oriented x3 and no apparent distress HEENT normocephalic, moist oral mucous membranes and oropharynx normal Eyes Eyes Narrative: jaundiced sclera Lymph Lymphatic: no lymphadenopathy noted and no lymphedema noted Resp normal respiratory effort and normal air movement Extremity no calf tenderness Skin General Skin Exam: jaundice Psych affect normal Appearance: appropriate Vital Signs Temperature 98.2 F 02/27/25 06:53 Temperature Source Oral 02/27/25 06:53 Pulse Rate 83 02/27/25 06:53 Pulse Strength Normal (2+) 02/26/25 20:40 Respiratory Rate 16 02/27/25 06:53 Respiratory Effort Normal, Non-Labored 02/26/25 21:22 Respiratory Depth Normal 02/26/25 21:22 Respiratory Pattern Normal 02/26/25 21:22 Blood Pressure 104/47 L 02/27/25 06:53 Blood Pressure Mean 66 02/27/25 06:53 Blood Pressure Source Monitor 02/27/25 06:53 Blood Pressure Position Semi-Fowlers 02/27/25 06:53 Blood Pressure Location Right Arm 02/27/25 06:53 Pulse Ox 92 02/27/25 06:53 Oxygen Delivery Method Room Air 02/27/25 06:53 Oxygen Flow Rate (L/min) 2 02/27/25 03:04 Laboratory Results - last 24 hr 02/26/25 07:05: CA 19-9 Antigen 1241 H 02/27/25 07:03: WBC 10.2, RBC 4.79, Hgb 14.2, Hct 42.6, MCV 88.9, MCH 29.6, MCHC 33.3, RDW Std Deviation 52.4 H, RDW Coeff of Nona 16.1 H, Plt Count 238, MPV 11.1, Immature Gran % (Auto) 0.700, Neut % (Auto) 65.3, Lymph % (Auto) 23.2, [place] % (Auto) 10.1 H, Eos % (Auto) 0.3, Baso % (Auto) 0.4, Absolute Neuts (auto) 6.7, Absolute Lymphs (auto) 2.36, Nucleated RBC % 0, Sodium 138, Potassium 4.0, Chloride 101, Carbon Dioxide 26.9, Anion Gap 10, BUN 14, Creatinine 0.87, Estim Creat Clear Calc 104.42, Est GFR (MDRD) Non-Af 77, BUN/Creatinine Ratio 16.4, Glucose 112 H, Calcium 8.6, Total Bilirubin 11.20 H, AST 149 H, ALT 279 H, Alkaline Phosphatase 624 H, Total Protein 5.5 L, Albumin 3.1 L, Globulin 2.4, Albumin/Globulin Ratio 1.3 Diagnostic Data Abdomen/Pelvis CT 02/25/25 10:29 IMPRESSION: There is a 0.9 cm irregular density in the right lung base, axial image 14/149. Atelectasis or scar is noted at the right lung base. There is a 3 cm heterogeneous low-density peripherally enhancing lesion in the mid right hepatic lobe, axial image 28/149. There is a 1.2 cm low-density lesion in the inferior right hepatic lobe, image 45. There is a heterogeneous mass at the pancreatic head measuring 7.7 by 6.4 cm, image 47, with stranding and nodularity in the adjacent fat. There is a 4.7 by 3.7 cm heterogeneous right adrenal mass, image 44, Hounsfield units = 51 There is a 1.2 x 1.5 cm enlarged mesenteric node, axial image 59/149. There is a 1.1 by 1.3 cm left periaortic node below the level of the left renal artery, image 60. 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 Critical results were discussed with Marybeth by Radha at the time of dictation. Reading Location: [facility]
--- NOTE | 2025-02-27 12:30 | CT_ITS ---
PROCEDURE: [facility] 02/27/2025 REASON FOR EXAM: PANCREATIC MASS; STAGING TECHNIQUE: CT chest was performed with IV contrast. Multiplanar reformats were generated. CONTRAST: Isovue-300 VOLUME: 99mL RADIATION DOSE SUMMARY: CTDlvol: 16.62+ 19.53 mGy DLP: 688.03 mGycm One or more dose reduction techniques were used (e.g., Automated exposure control, adjustment of the mA and/or kV according to patient size, use of iterative reconstruction technique). COMPARISON: None. FINDINGS: Heart/pericardium: Trace aortic annular calcification. Aorta: Trace to mild atherosclerosis.. Pulmonary arteries: Normal in caliber. Lymph nodes: Unremarkable. Lungs/pleura: Prominent bibasilar airspace disease favorable for atelectasis/scarring. Subpleural 8 x 9 mm nodule in the anterior RIGHT upper lobe (series 4, image 44). Airways: Minimal debris within the trachea, presumed airway secretions. Chest wall: Unremarkable. Upper abdomen: Better evaluated on recent CT abdomen and pelvis. Musculoskeletal: Multilevel spondylosis. Suspect demineralization.. CT/Chest WITH Contrast IMPRESSION: 1. 9 mm RIGHT upper lobe nodule. In the setting of known malignancy, this is a t least mildly suspicious for metastatic disease. Recommend clinical/oncologic follow-up. PET/CT could be considered. Compariso n with any available outside imaging may also be helpful. Note the Fleischner recommendations for nodule follow-up cannot be ap plied in the setting of known malignancy. 2. Prominent bibasilar airspace disease favorable for atelectasis/scarring. Co rrelate for early/mild pneumonia. Note this reduces sensitivity for pulmonary nodules in these areas. Consider an outpatie nt follow-up exam for improved sensitivity. 3. Refer to recent CT abdomen and pelvis report for intra-abdominal findings. 4. Additional description as above. Reading Location: [id number]
[2025-02-27] MEDS: Ondansetron 4 MG/2 ML Vial IV (12:53)
--- NOTE | 2025-02-27 14:41 | DCINST_ITS ---
Discharge Instructions Diet Discharge Diet: No restrictions DC O2, CPAP, BIPAP needs Home O2 Discharge instructions: No Dressing / Incision Discharge Activity: Return to Normal Activity Weight Bearing Status: Weight bearing as tolerated Dressing / Incision Call your doctor if you observe: Fever of 101 or Higher, Shortness of breath, Dizziness, Swelling in the ankles and Chest pain Follow Up Care Test Results: Test results from this visit will be discussed in further detail at your follow- up appointment, if applicable. Discharge Plan Admission Admit Date/Time: 02/25/25 15:10 Primary Reason for Your Visit: newly diagnosed metastatic pancreatic cancer Attending Provider: Justa Pastrana Primary Care Provider: Mir Hernandez Consulting Providers: Andre Solano; Dontae Coello; James Monzon; Mauri Giles; Mahesh Mora; Patsy Kraus; Jasper Calix; Ananth De La Cruz; Vu Rosario; Isaias Jarvis; Nidhi Najera ELECTRIC SWITCH REPAIRER Instructions Patient Instructions: Pancreatic Cancer Dc, Pancreatic Cancer: Newly Diagnosed, Pancreatic Cancer Tx Questions, Pancreatic Cancer: Overview Discharge Orders/Prescriptions Prescriptions: New oxycodone 5 mg tablet 5 mg PO Q6H PRN (Reason: pain) 5 Days Qty: 20 0RF Continued omeprazole 20 mg capsule,delayed release(DR/EC) 20 mg PO DAILY PRN (Reason: acid reflux) calcium carbonate [Calcium 500] 500 mg calcium (1,250 mg) tablet,chewable 500 mg PO DAILY PRN (Reason: dyspepsia) Referrals / Follow Up: Mir Hernandez MD [Primary Care Provider] - Patsy Kraus MD [Med Staff - Active Staff] - Within 1 Week (see to establish care) Disposition Disposition (needs filled in before D/C Order can be placed): Home, Self Care
--- NOTE | 2025-02-27 14:42 | DS.PCM_ITS ---
Providers Date of Admission: 02/25/25 Date of Discharge: 02/27/25 Primary Care Physician: Dr. Mir Hernandez MD Consultations 02/25/25 16:11 Consult: Gastroenterology Routine Consulting Provider: Ra Russhsaan Reason for Consult: ERCP for stent placement and biopsy EMERGENT Consult: No Notified: Yes Date Notified: 02/25/25 Time Notified: 16:16 Method of Notification: Text 02/26/25 10:19 Consult: Oncology/Hematology Routine Consulting Provider: *[facility] Reason for Consult: metastatic cancer, likely pancreas as primary EMERGENT Consult: No Notified: Yes Date Notified: 02/26/25 Time Notified: 10:19 Method of Notification: Text Reason For Visit: PANCRATIC HEAD MASS NEEDS STENT Diagnosis Discharge Diagnosis (1) Pancreatic mass: Status: Acute Code(s): K86.89 - Other specified diseases of pancreas (2) Painless jaundice: Status: Acute Code(s): R17 - Unspecified jaundice Plan #Obstructive jaundice, likely due to pancreatic cancer with mets to liver and adrenal gland * admitted with a complaint of painless jaundice and pale stools as well as abdominal pain and weight loss. * abdominal CT showed a mass in the head of the pancreas as well as lesion in the liver and on the adrenal gland and an intra-luminary filling defect, likely nonocclusive thrombus in the portal vein and proximal mesenteric veins * GI consulted. for biliary stent insertion today * I counseled patient extensively today about the workup for pancreatic cancer. Patient did admit that her 30 year old daughter from a very aggressive breast cancer, and she therefore does not want to suffer like she did. She is however, willing to explore treatment modalities for the cancer. * will consult oncology * #DVT prophylaxis: lovenox. Will need anticoagulation eventually Medications at Discharge Home Medications calcium carbonate (Calcium 500) 500 mg PO DAILY PRN dyspepsia 02/25/25 omeprazole 20 mg capsule,delayed release 20 mg PO DAILY PRN acid reflux 02/25/25 enoxaparin 150 mg/mL subcutaneous syringe (Lovenox) 150 mg subcut Q12H 30 days #60 mL 02/27/25 oxycodone 5 mg tablet 5 mg PO Q6H PRN pain 5 days #20 tabs 02/27/25 Hospital Course Operations ERCP Procedures None Summary of Care Provided Minutes Spent on Discharge: 45 Hospital Course: Patient is a 60 year old female with a PMH as outlined who was admitted via the ED on 02/25/2025 with a complaint of jaundice as well as abdominal pain and pale stools as well as darkening of her urine. She also noted some weight loss and decreased appetite. Her symptoms had been going on for about 2-3 weeks prior to admission and admitted to a 50 pound weight loss. The jaundice subsequently occured. She said she had a history of partial hysterectomy due to a strong paternal family history of uterine cancer. Her daughter also at age 30 from an aggressive breast cancer. CT of the abdomen and pelvis showed a large pancreatic mass with associated 3 cm heterogeneous low-density peripherally enhancing lesion in the right mid hepatic lobe and a 1.2 cm lesion in the inferior right hepatic lobe as well as a 4.7 x 3.7 cm heterogeneous right adrenal mass and an enlarged mesenteric lymph node and periaortic node as well as an intraluminal filling defect likely nonocclusive thrombus in the portal vein and proximal mesenteric veins. She was admitted and managed for metastatic cancer with the primary presumed to be pancreatic cancer with spread to the liver and adrenal gland. She had ERCP which showed an irregularity in the ventral pancreatic duct in the head of the pancreas. Pancreatic sphincterotomy was performed and cells for cytology obtained in the ventral pancreatic duct in the head of the pancreas and 1 temporary stent was placed into the ventral pancreatic duct and the biliary sphincterotomy was also performed. Per gastroenterology patient would need a percutaneous transhepatic drainage due to a totally obstructed common bile duct for a large pancreatic tumor. Oncology was also consulted and recommended a liver biopsy. Liver biopsy was ordered but there was no radiology service available to conduct the liver biopsy. Patient was therefore started on therapeutic Lovenox 150 mg twice daily on account of the nonocclusive thrombus in the portal and proximal mesenteric veins. She was discharged home on 02/27/2025 with a prescription for p.o. oxycodone 5 mg daily every 6 hours as needed for total of 5 days and 20 tablets. OARRS score was checked and no red flags were seen. She was also given a prescription for subcu Lovenox 150 mg twice daily. She is to follow-up with oncology within 1 week for them to arrange the liver biopsy. She is also to follow-up with gastroenterology and her PCP within 1 to 2 weeks. Patient was seen and examined prior to discharge. She had no active complaints. On further questioning she did admit to some epigastric pain. Review of symptoms otherwise negative. She does remain jaundiced. Labs and vitals reviewed. Home medication reviewed and reconciled. Of note she also had a CT of the chest done prior to discharge which showed a 9 mm right upper lobe nodule with recommendation for clinical oncologic follow-up and to consider PET scanning in the setting of known malignancy as this was suspicious for metastatic disease. Physical Exam Const alert, oriented x3 and no apparent distress Constitutional Narrative: class III obesity General Appearance: cooperative and comfortable Exam Limitations: no limitations HEENT normocephalic, head/scalp atraumatic, hearing grossly normal bilaterally, moist oral mucous membranes and oropharynx normal Mouth: oral and palatal mucosa normal Eyes PERRL and EOMs intact bilaterally Eyes Narrative: jaundiced sclera Neck no lymphadenopathy and supple Lymph Lymphatic: no lymphadenopathy noted and no lymphedema noted Resp normal respiratory effort, normal air movement and clear to auscultation bilaterally Cardio regular rate, regular rhythm, S1 normal heart sound, S2 normal heart sound and no murmurs GI normal to inspection, nondistended, normoactive bowel sounds, soft to palpation, non-tender and non-distended Extremity normal to inspection, full ROM, normal capillary refill, no clubbing, cyanosis or edema and no calf tenderness General Extremity: no tenderness to palpation of joints or extremities Skin Skin Narrative: deeply jaundiced Neuro oriented x3, CN's II-XII intact bilaterally, moves all extremities, no focal motor deficits and no sensory deficits noted Sensorium / Orientation: awake and alert Motor Exam: strength 5/5 throughout Psych thought process normal, cooperative and affect normal Appearance: appropriate Medical Records Data Medical Nutrition Assessment Dietitian: Malnutrition Criteria Met Start: 02/26/25 15:22 Freq: Status: Active Protocol: Document 02/26/25 15:23 RMA (Rec: 02/26/25 15:23 RMA [id number]) Nutrition Malnutrition Evidence of Yes Malnutrition Exists Malnutrition (severe Acute Illness/Injury ): Evidenced By Suboptimal Energy Intake (Severe),Weight Loss (Severe) Clinical Problem Acute Disease or Injury Related Malnutrition Etiology Severe protein-calorie malnutrition in the context of increased energy expenditure and inadequate energy/oral intake Signs/Symptoms as evidenced by unintentional weight loss >10% in less than 1 month and inadequate oral intake meeting less than 75% estimated nutrition needs x past 1-2 weeks; currently NPO Status Active Problem Recommendation Dietitian Advance diet as medically able to Regular. Recommendations/ Will offer ONS as diet advanced from NPO. Changes Weight / BMI Weight Weight: 313 lb 7.957 oz Body Mass Index (BMI) 49.1 ABG / Lab / Microbiology Data 02/27/25 07:03 02/27/25 07:03 Laboratory: Laboratory Results - last 24 hr 02/26/25 07:05: CA 19-9 Antigen 1241 H 02/27/25 07:03: WBC 10.2, RBC 4.79, Hgb 14.2, Hct 42.6, MCV 88.9, MCH 29.6, MCHC 33.3, RDW Std Deviation 52.4 H, RDW Coeff of Nona 16.1 H, Plt Count 238, MPV 11.1, Immature Gran % (Auto) 0.700, Neut % (Auto) 65.3, Lymph % (Auto) 23.2, M rebecca % (Auto) 10.1 H, Eos % (Auto) 0.3, Baso % (Auto) 0.4, Absolute Neuts (auto) 6.7, Absolute Lymphs (auto) 2.36, Nucleated RBC % 0, Sodium 138, Potassium 4.0, Chloride 101, Carbon Dioxide 26.9, Anion Gap 10, BUN 14, Creatinine 0.87, Estim Creat Clear Calc 104.42, Est GFR (MDRD) Non-Af 77, BUN/Creatinine Ratio 16.4, G lucose 112 H, Calcium 8.6, Total Bilirubin 11.20 H, AST 149 H, ALT 279 H, A lkaline Phosphatase 624 H, Total Protein 5.5 L, Albumin 3.1 L, Globulin 2.4, Albumin/Globulin Ratio 1.3 Radiography Diagnostic Testing: Radiology Impression Endo Retro Cholangiopancreatogram 02/26/25 13:45 IMPRESSION: Fluoroscopy during ERCP as above. Reading Location: [id number] Chest CT 02/27/25 12:30 IMPRESSION: 1. 9 mm RIGHT upper lobe nodule. In the setting of known malignancy, this is at least mildly suspicious for metastatic disease. Recommend clinical/oncologic follow-up. PET/CT could be considered. Comparison with any available outside imaging may also be helpful. Note the Fleischner recommendations for nodule follow-up cannot be applied in the setting of known malignancy. 2. Prominent bibasilar airspace disease favorable for atelectasis/scarring. Correlate for early/mild pneumonia. Note this reduces sensitivity for pulmonary nodules in these areas. Consider an outpatient follow-up exam for improved sensitivity. 3. Refer to recent CT abdomen and pelvis report for intra-abdominal findings. 4. Additional description as above. Reading Location: [facility] D/C Instructions Discharge Diet: No restrictions Discharge Activity: Return to Normal Activity Weight Bearing Status: Weight bearing as tolerated Call your doctor if you observe: Fever of 101 or Higher, Shortness of breath, Dizziness, Swelling in the ankles and Chest pain DC O2, CPAP, BIPAP Needs Home O2 Discharge instructions: No DC home with Oxygen: No Meaningful Use Info Meaningful Use Meaningful Use Diagnoses (Choose all that apply): None applicable Ischemic Stroke Statin Dosing Therapy Reference: STATIN DOSE THERAPY REFERENCE: * Patients > 75 years receive moderate or high dose statin therapy. * Patients 75 years or YOUNGER should receive HIGH intensity statin dose unless contraindicated. You will be required to document reason for non-treatment if statin daily dose does not meet guidelines. HIGH DOSE STATIN THERAPY DAILY Atorvastatin > than or = to 40 mg Rosuvastatin > than or = to 20 mg Amlodipine + Atorvastatin > than or = to 2.5/40 mg Ezetimibe + Simvastatin 10/80 mg Simvastatin 80mg Discharge Plan Admission Admit Date/Time: 02/25/25 15:10 Primary Reason for Your Visit: newly diagnosed metastatic pancreatic cancer Attending Provider: Justa Pastrana Primary Care Provider: Mir Hernandez Consulting Providers: Ander Solano; Dontae Coello; James Monzon; Mauri Giles; Mahesh Mora; Patsy Kraus; Jasper Calix; Ananth De La Cruz; Vu Rosario; Isaias Jarvis; Nidhi Najera WELLNESS NURSE Instructions Patient Instructions: Pancreatic Cancer Dc, Pancreatic Cancer: Newly Diagnosed, Pancreatic Cancer Tx Questions, Pancreatic Cancer: Overview Discharge Orders/Prescriptions Prescriptions: New oxycodone 5 mg tablet 5 mg PO Q6H PRN (Reason: pain) 5 Days Qty: 20 0RF enoxaparin [Lovenox] 150 mg/mL syringe 150 mg subcut Q12H 30 Days Qty: 60 1RF Continued omeprazole 20 mg capsule,delayed release(DR/EC) 20 mg PO DAILY PRN (Reason: acid reflux) calcium carbonate [Calcium 500] 500 mg calcium (1,250 mg) tablet,chewable 500 mg PO DAILY PRN (Reason: dyspepsia) Referrals / Follow Up: Mir Hernandez MD [Primary Care Provider] - Patsy Kraus MD [Med Staff - Active Staff] - Within 1 Week (see to establish care) Disposition Disposition (needs filled in before D/C Order can be placed): Home, Self Care Charges/Coding Visit Charges Inpatient E&M: 78969 Disch Hosp >30min
--- NOTE | 2025-02-27 15:28 | CASEMGMT ---
Addendum entered by Melany Dejesus 02/27/25 16:31: TC to [facility], spoke with Fatou, she spoke with physician and Nidhi. They will plan to call pt either this week or early next week to set up the liver bx. They will then call pt to set up first initial appt after pathology is complete. Pt nurse notified MASSIEL ZHENG that her cost is approx $500 for lovenox. MASSIEL ZHENG looked up Good rx and found at [facility] in [place] to be the most cost effective at $292.60. RN NORM into pt room, pt states she cannot afford the Good rx cost and does not want to go to [place]. Updated hospitalist. Order changed to eliquis. MASSIEL ZHENG back into pt room, pt is aware that her med will be switched to eliquis and that she will be given direction to hold the medication for upcoming procedure. Pt verbalized understanding. TC back to Rachel at [facility] to make aware of this. Rachel states she received previous vm. She is aware pt will dc on Eliquis and will update Nidhi. TC to [facility], spoke with Marilyn, meds will be delivered to room and savings card will be applied. Provided pt with information for eliquis to start checking on pt savings program as this will be helpful after her 30 days is complete. Pt is aware that [facility] will be in touch with her to schedule liver bx and initial appt with them. She is also aware that 's office will be calling her to set up an appt as a vm was left by the apartment community assistant manager but appt could not be secured. Pt provided rx for outpt therapy per request. Pt denies any further homegoing needs at this time. Addendum entered by Melany Dejesus 02/27/25 15:34: TC to [facility], left requesting cost of lovenox and to see if there is a PA needed. Original Note: TC to [facility], they cannot provide pt with lovenox to be filled at this pharmacy, requested med be sent to [facility] per pt pharmacy list. TC to Rachel Alfonso, oncology patient navigator, left vm to make aware that pt will be establishing care. Per hospitalist, pt liver bx will be ordered by [facility], left this on vm as well. Gave general summary of pt at this time via vm.
== END 2025-02-27 17:08 | disposition home or self-care (01) | DRG 435 ==
LOC: ED 14:19 → MS3 15:32
PROVIDERS: Internal Medicine Gastroenterology; Admitting Provider Family Medicine; Emergency Provider Emergency Medicine; PCP Family Medicine; Referring Provider Family Medicine; Visit Provider Student in an Organized Health Care Education/Training Program
PROC: 0F7D8DZ Dilation of Pancreatic Duct with Intraluminal Device, Via Natural or Artificial Opening Endoscopic (ICD-10-PCS; CPT 43260; principal; 2025-02-26 14:25)
DX: C25.0 Malignant neoplasm of head of pancreas (principal); I81 Portal vein thrombosis; E43 Unspecified severe protein-calorie malnutrition; K83.1 Obstruction of bile duct; C79.71 Secondary malignant neoplasm of right adrenal gland; C78.7 Secondary malignant neoplasm of liver and intrahepatic bile duct; Z68.42 Body mass index [BMI] 45.0-49.9, adult; D68.59 Other primary thrombophilia; K21.9 Gastro-esophageal reflux disease without esophagitis; F17.210 Nicotine dependence, cigarettes, uncomplicated; E66.813 Obesity, class 3; R91.1 Solitary pulmonary nodule
CPT/HCPCS: 36415; 71260; 74177; 74330; 76000; 80048; 80053; 80076; 81001; 83690; 85025; 86301; 88108; 88305; 88307; 88313; 93005; 97802; 99284; C2625; Q9967; A4216; J2405

== ENCOUNTER 2025-03-07 08:43 | Outpatient (CLI) | payer OTHER, SELFPAY ==
[2025-03-07] VITALS (30 sets, daily range): BP systolic 88–134; BP diastolic 43–85; PULSE 69–85; RESP 12–16; TEMP 36.3; O2SAT 93–100; BMI 48.5
--- NOTE | 2025-03-07 09:05 | CT_ITS ---
PROCEDURE: BIOPSY/INJ OR NEEDLE PLACEMENT 03/07/2025 REASON FOR EXAM: LIVER LESIONS; PANCREATIC MASS TECHNIQUE: Procedure: Following informed consent, and using standard sterile technique, a right hepatic CT-guided biopsy was performed. 2% lidocaine local anesthesia was followed by placement an 18 gauge CorVocet 15 cm core biopsy system at areas of biopsy sites. Given the change in patient positioning for the procedure and the lack of initial intravenous contrast, it was very difficult to determine the targeted site for biopsy. Initially, a likely site was identified and biopsied attempted, with 4 core specimens obtained. Following this, intravenous contrast was administered, with a new site identified, also of the lateral right lobe of the liver, and 4 core specimens obtained at that site. No complication was encountered, and the patient left the department in good condition, without significant complaint. Start time 1023 hours, and stop time 1158 hours. Medications: Versed 4 mg intravenous. Fentanyl 150 mcg intravenous. CONTRAST: Isovue-300 VOLUME: 100 mL IV. One or more dose reduction techniques were used (e.g., Automated exposure control, adjustment of the mA and/or kV according to patient size, use of iterative reconstruction technique). RADIATION DOSE SUMMARY: DLP: 4144.29 mGycm COMPARISON: Chest CT of 02/28/2020 CT/Biopsy/Inj or Needle Placement IMPRESSION: Successful right hepatic CT-guided core biopsy, with pathology results pending. Reading Location: [place] [address]
[2025-03-07 09:16] LABS: Absolute Lymphocyte Count 1.26 X10^3/uL (0.83-4.51); Absolute Neutrophil Count 6.3 X10^3/uL (2.0-7.7); Basophil# 0.06 X10^3/uL; Basophil% 0.7 % (0-1); Eosinophil# 0.13 X10^3/uL; Eosinophils% 1.5 % (0-5); Hemoglobin 15.2 g/dL (12.0-15.0); Lymphocyte # 1.26 X10^3/ul (0.83-4.51); Lymphocyte % 14.4 % (19-41); Mean Corp Hgb Conc 34.5 g/dL (32-36); Mean Platelet Vol. 10.9 fl (6.2-12.0); Monocyte# 0.92 X10^3/uL; Monocyte% 10.5 % (0-10); NRBC Flagged by Analyzer 0 % (0-5); Neutrophil # 6.29 X10^3/uL (2.7-7.7); Platelet Count 304 K/mm3 (150-450); RBC Distribution Width CV 18.2 % (11.6-14.6); Red Blood Count 5.06 M/mm3 (4.2-5.4); White Blood Count 8.7 K/mm3 (4.4-11.0)
[2025-03-07 09:24] LABS: International Normalized Ratio 1.2; Partial Thromboplast Time 28.7 Seconds (24.1-36.2); Prothrombin Time (Protime)PT. 15.1 SECONDS (11.7-14.9)
[2025-03-07] MEDS: Midazolam 2 MG/2 ML Syringe IV ×4 (10:23→11:24)
[2025-03-07] MEDS: fentaNYL 100 MCG/2 ML Ampul IV ×4 (10:24→11:42)
--- NOTE | 2025-03-07 10:40 | ASPIGT_PTH ---
PATIENT: SELENA HURTADO LOC: [facility] U#:[id number] AGE/SX: 60/F ROOM: RE03/07/[address]: Dr. Patsy Kraus MD : 1965 BED: DIS: 03/07/2025 SPEC #: [id number] RECD: 03/07/25 10:45 STATUS: NELSON REChristal #: [id number] DEANNE: 03/07/25 10:[address]: Patsy Kraus DEPT: SURGICAL PATHOLOGY RECD BY: Valeriy Wadsworth ENTERED: 03/07/25 12:13 SP TYPE: ASP RAD OTHR DR: Dr. Mir Hernandez MD Tissues: A - Liver, NOS Procedures: FNA Specimen Adequacy Immunohistochemical Stains Special Stain Group II Surgery Specimen Level V Imprint (control) IHC Stain ADDITIONAL HEADER OPERATION: CT guided liver biopsy PRE-OP DIAGNOSIS: Pancreatic mass, liver lesion TISSUE SUBMITTED: A1- 18 gauge x 6 cores, A2- 18 gauge x 4 cores with contrast MICROSCOPIC DIAGNOSIS A. Liver, lesion, pancreatic mass, CT-guided core biopsy: * Compatible with metastatic pancreatic adenocarcinoma by morphology - see Comment. * IHC supports the histologic impression: * Positive for CK7 (diffuse), CK20 (patchy), CDX2 (weak) * Negative for TTF-1, OZZIE-3 COMMENT Selected slides/images were reviewed in intradepartmental consultation by Dr Mike Young (GI pathology division, [facility]). The specimen is evaluated at the time of biopsy by Dr. Barrientos. Immediate Evaluation = A1. Hepatocytes. A2. Atypical cells. MICROSCOPIC DESCRIPTION Slides are reviewed. All matched controls reacted appropriately. These tests were developed and their performance characteristics determined by [facility]. They may not have been cleared or approved by the U.[place]. Food and Drug Administration. The FDA has determined that such clearance or approval is not necessary.? The above immunohistochemical/dualISH?markers are ordered and reviewed by the Pathologist. GROSS DESCRIPTION A. Received in 2 containers of formalin, each labeled with the patient's name and date of ; the first labeled 1 and the second labeled, 2 (accompanying paperwork indicates with contrast). The first container exhibits approximately 6 red-brown, cylindrical core biopsies of soft tissue measuring 1.8 x 0.9 x 0.3 cm in aggregate. The second container includes approximately 4 red-brown, cylindrical core biopsies measuring 2.0 x 0.7 x 0.3 cm in aggregate. The specimen is submitted in toto as follows:A1. Contents of container #1A2. Contents of container #2 [facility] 03-07-2025 CPT:47687,[id number]
[2025-03-07] MEDS: Lidocaine 2% (20 ml mdv) 20 ML Vial INFILT (10:52)
[2025-03-07 17:06] LABS: Xtra Tube EP Lab EXTRA TUBE
== END 2025-03-07 23:59 | disposition home or self-care (01) ==
PROVIDERS: Radiology Diagnostic Radiology; PCP Family Medicine; Referring Provider Internal Medicine Hematology & Oncology; Visit Provider Internal Medicine Hematology & Oncology
DX: K76.9 Liver disease, unspecified (principal); K86.89 Other specified diseases of pancreas
CPT/HCPCS: 47000; 36415; 77012; 85025; 85610; 85730; 88172; 88307; 88313; 88341; 88342; 99156; 99157; Q9967; A4216